=== PATIENT | male | born 1965 | race Caucasian/White ===

== ENCOUNTER 2017-05-07 21:58 | Emergency (ER) | payer SELFPAY, BC ==
[2017-05-07 23:29] LABS: HEMATOCRIT 47.5 % (42.0-52.0); HEMOGLOBIN 16.8 g/dl (14.0-18.0); MEAN CORPUSCULAR HGB CONC 35.4 g/dl (32.0-36.5); PLATELET COUNT, AUTOMATED 161 10^3/uL (150-450); RED CELL DISTRIBUTION WIDTH 11.6 % (11.5-14.5)
[2017-05-08 00:02] LABS: ALBUMIN 4.2 GM/DL (3.2-5.2); ALBUMIN/GLOBULIN RATIO 1.14 (1.00-1.93); ALKALINE PHOSPHATASE 108 U/L (45-117); ALT/SGPT 47 U/L (12-78); ANION GAP 15 MEQ/L (8-16); AST/SGOT 56 U/L (7-37); BILIRUBIN,DIRECT 0.2 MG/DL (0.0-0.2); BILIRUBIN,TOTAL 0.5 MG/DL (0.2-1.0); BLOOD UREA NITROGEN 13 MG/DL (7-18); CALCIUM LEVEL 8.6 MG/DL (8.5-10.1); CARBON DIOXIDE LEVEL 19 MEQ/L (21-32); CHLORIDE LEVEL 103 MEQ/L (98-107); CREATININE FOR GFR 0.97 MG/DL (0.70-1.30); ETHYL ALCOHOL (ETHANOL) 0.284 % (0.000-0.010); GLOMERULAR FILTRATION RATE > 60.0 (>56); GLUCOSE, FASTING 333 MG/DL (70-100); POTASSIUM SERUM 4.4 MEQ/L (3.5-5.1); SALICYLATE LEVEL < 1.7 MG/DL (5.0-30.0); SODIUM LEVEL 137 MEQ/L (136-145); TOTAL PROTEIN 7.9 GM/DL (6.4-8.2)
[2017-05-08 00:13] LABS: ACETAMINOPHEN LEVEL < 2.0 UG/ML (10.0-30.0)
[2017-05-08 01:05] LABS: AMPHETAMINES LEVEL URINE NEGATIVE (NEGATIVE); BARBITURATES URINE NEGATIVE (NEGATIVE); BENZODIAZEPINES URINE NEGATIVE (NEGATIVE); CANNABINOIDS URINE NEGATIVE (NEGATIVE); COCAINE METABOLITE URINE NEGATIVE (NEGATIVE); METHADONE URINE NEGATIVE (NEGATIVE); OPIATES URINE NEGATIVE (NEGATIVE); PHENCYCLIDINE URINE NEGATIVE (NEGATIVE)
[2017-05-08 10:12] LABS: ESTIMATED AVERAGE GLUCOSE 229 MG/DL (60-110); HEMOGLOBIN A1c 9.6 %
== END 2017-05-08 09:28 | disposition home or self-care (01) ==
LOC: M ED 21:58
DX: F10.120 Alcohol abuse with intoxication, uncomplicated (principal); Y90.1 Blood alcohol level of 20-39 mg/100 ml; I10 Essential (primary) hypertension; R73.9 Hyperglycemia, unspecified
CPT/HCPCS: G0480

== ENCOUNTER → 2017-06-09 | Outpatient (REF) | payer BC ==
[2017-06-09 13:15] LABS: BASO # 0.1 10^3/uL (0.0-0.2); BASO % 0.9 % (0.0-1.0); EOS # 0.1 10^3/uL (0.0-0.50); EOS % 1.7 % (0.0-3.0); HEMATOCRIT 45.3 % (42.0-52.0); HEMOGLOBIN 16.3 g/dl (14.0-18.0); IMMATURE GRANULOCYTE % 0.2 % (0-3.0); LYMPH # 1.7 10^3/uL (1.5-4.5); LYMPH % 29.8 % (24.0-44.0); MEAN CORPUSCULAR HEMOGLOBIN 35.7 pg (27.0-33.0); MEAN CORPUSCULAR VOLUME 99.3 fl (80.0-96.0); MONO # 0.6 10^3/uL (0.0-0.8); MONO % 9.5 % (0.0-5.0); NEUTROPHILS # 3.4 10^3/uL (1.8-7.7); NEUTROPHILS % 57.9 % (36.0-66.0); PLATELET COUNT, AUTOMATED 176 10^3/uL (150-450); RED BLOOD COUNT 4.56 10^6/uL (4.30-6.10); RED CELL DISTRIBUTION WIDTH 11.9 % (11.5-14.5); WHITE BLOOD COUNT 5.8 10^3/uL (4.0-10.0)
[2017-06-09 14:02] LABS: ALBUMIN 4.3 GM/DL (3.2-5.2); ALBUMIN/GLOBULIN RATIO 1.19 (1.00-1.93); ALKALINE PHOSPHATASE 117 U/L (45-117); ALT/SGPT 33 U/L (12-78); ANION GAP 9 MEQ/L (8-16); AST/SGOT 29 U/L (7-37); BILIRUBIN,TOTAL 1.8 MG/DL (0.2-1.0); BLOOD UREA NITROGEN 16 MG/DL (7-18); CALCIUM LEVEL 9.3 MG/DL (8.5-10.1); CARBON DIOXIDE LEVEL 28 MEQ/L (21-32); CHLORIDE LEVEL 100 MEQ/L (98-107); CHOLESTEROL LEVEL 201 MG/DL (<200); CHOLESTEROL RISK RATIO 3.589 (<5); CREATININE FOR GFR 0.87 MG/DL (0.70-1.30); GLOMERULAR FILTRATION RATE > 60.0 (>56); GLUCOSE, FASTING 242 MG/DL (70-100); HDL CHOLESTEROL 56 MG/DL (>40); NON-HDL-C 145 MG/DL; POTASSIUM SERUM 4.3 MEQ/L (3.5-5.1); SODIUM LEVEL 137 MEQ/L (136-145); TOTAL PROTEIN 7.9 GM/DL (6.4-8.2); TRIGLYCERIDES LEVEL 65 MG/DL (<150)
[2017-06-09 15:50] LABS: ESTIMATED AVERAGE GLUCOSE 237 MG/DL (60-110); HEMOGLOBIN A1c 9.9 %
== END ==
LOC: M LABDRAW1 11:48
DX: E78.5 Hyperlipidemia, unspecified (principal); E73.9 Lactose intolerance, unspecified; I10 Essential (primary) hypertension
CPT/HCPCS: 80053

== ENCOUNTER → 2017-09-10 | Outpatient (REF) | payer BC ==
[2017-09-10 11:38] LABS: ESTIMATED AVERAGE GLUCOSE 126 MG/DL (60-110)
[2017-09-10 11:45] LABS: ANION GAP 8 MEQ/L (8-16); BLOOD UREA NITROGEN 14 MG/DL (7-18); CARBON DIOXIDE LEVEL 28 MEQ/L (21-32); CHLORIDE LEVEL 102 MEQ/L (98-107); CREATININE FOR GFR 0.71 MG/DL (0.70-1.30); GLOMERULAR FILTRATION RATE > 60.0 (>56); GLUCOSE, FASTING 97 MG/DL (70-100); POTASSIUM SERUM 4.2 MEQ/L (3.5-5.1); SODIUM LEVEL 138 MEQ/L (136-145)
[2017-09-10 12:26] LABS: CREATININE, URINE 90.1 MG/DL; MALB URINE SIEMENS 16.7 MG/L; MAU/CREAT RATIO 18.5 MCG/MG (0.0-30.0)
== END ==
LOC: M LABDRAW1 11:03
DX: E11.9 Type 2 diabetes mellitus without complications (principal)
CPT/HCPCS: 83036

== ENCOUNTER → 2018-03-03 | Outpatient (REF) | payer BC ==
[2018-03-03 14:27] LABS: ANION GAP 9 MEQ/L (8-16); BLOOD UREA NITROGEN 16 MG/DL (7-18); CALCIUM LEVEL 8.8 MG/DL (8.5-10.1); CARBON DIOXIDE LEVEL 27 MEQ/L (21-32); CHLORIDE LEVEL 99 MEQ/L (98-107); CHOLESTEROL LEVEL 197 MG/DL (<200); CHOLESTEROL RISK RATIO 3.788 (<5); CREATININE FOR GFR 0.83 MG/DL (0.70-1.30); GLOMERULAR FILTRATION RATE > 60.0 (>56); GLUCOSE, FASTING 96 MG/DL (70-100); HDL CHOLESTEROL 52 MG/DL (>40); LDL CHOLESTEROL 125 MG/DL (<100); NON-HDL-C 145 MG/DL; POTASSIUM SERUM 4.1 MEQ/L (3.5-5.1); SODIUM LEVEL 135 MEQ/L (136-145); TRIGLYCERIDES LEVEL 98 MG/DL (<150)
[2018-03-03 15:28] LABS: ESTIMATED AVERAGE GLUCOSE 111 MG/DL (60-110); HEMOGLOBIN A1c 5.5 %
== END ==
LOC: M LABDRAW1 12:04
DX: E78.5 Hyperlipidemia, unspecified (principal); E11.69 Type 2 diabetes mellitus with other specified complication
CPT/HCPCS: 83036

== ENCOUNTER → 2019-05-18 | Outpatient (REF) | payer BC ==
[2019-05-18 12:42] LABS: ALBUMIN 4.3 GM/DL (3.2-5.2); ALT/SGPT 28 U/L (12-78); BILIRUBIN,TOTAL 0.9 MG/DL (0.2-1.0); BLOOD UREA NITROGEN 10 MG/DL (7-18); CALCIUM LEVEL 8.9 MG/DL (8.5-10.1); CARBON DIOXIDE LEVEL 27 MEQ/L (21-32); CHLORIDE LEVEL 105 MEQ/L (98-107); CHOLESTEROL LEVEL 175 MG/DL (<200); CREATININE FOR GFR 0.79 MG/DL (0.70-1.30); GLOMERULAR FILTRATION RATE > 60.0 (>56); GLUCOSE, FASTING 109 MG/DL (70-100); HDL CHOLESTEROL 72 MG/DL (>40); LDL CHOLESTEROL 92 MG/DL (<100); NON-HDL-C 103 MG/DL; POTASSIUM SERUM 4.3 MEQ/L (3.5-5.1); SODIUM LEVEL 140 MEQ/L (136-145); TOTAL PROTEIN 7.5 GM/DL (6.4-8.2); TRIGLYCERIDES LEVEL 55 MG/DL (<150)
== END ==
LOC: M LABDRAW1 07:32
PROVIDERS: ATTEND Physician Assistant
DX: E11.9 Type 2 diabetes mellitus without complications (principal); E78.5 Hyperlipidemia, unspecified

== ENCOUNTER 2019-12-01 21:28 | Emergency (ER) | payer BC ==
[2019-12-01 22:38] VITALS: BP 129/81
[2019-12-01 23:04] LABS: HEMATOCRIT 40.9 % (42.0-52.0); MEAN CORPUSCULAR HEMOGLOBIN 34.1 pg (27.0-33.0); MEAN CORPUSCULAR HGB CONC 34.2 g/dl (32.0-36.5); MEAN CORPUSCULAR VOLUME 99.5 fl (80.0-96.0); PLATELET COUNT, AUTOMATED 150 10^3/uL (150-450); RED BLOOD COUNT 4.11 10^6/uL (4.30-6.10); WHITE BLOOD COUNT 7.1 10^3/uL (4.0-10.0)
[2019-12-01 23:39] LABS: AMPHETAMINES LEVEL URINE NEGATIVE (NEGATIVE); BARBITURATES URINE NEGATIVE (NEGATIVE); BENZODIAZEPINES URINE NEGATIVE (NEGATIVE); CANNABINOIDS URINE NEGATIVE (NEGATIVE); COCAINE METABOLITE URINE NEGATIVE (NEGATIVE); METHADONE URINE NEGATIVE (NEGATIVE); OPIATES URINE NEGATIVE (NEGATIVE); PHENCYCLIDINE URINE NEGATIVE (NEGATIVE)
[2019-12-01 23:51] LABS: ACETAMINOPHEN LEVEL < 2.0 UG/ML (10.0-30.0); ALBUMIN 4.1 GM/DL (3.2-5.2); ALT/SGPT 38 U/L (12-78); BILIRUBIN,DIRECT 0.3 MG/DL (0.0-0.2); BILIRUBIN,TOTAL 0.9 MG/DL (0.2-1.0); BLOOD UREA NITROGEN 10 MG/DL (7-18); CALCIUM LEVEL 8.7 MG/DL (8.5-10.1); CARBON DIOXIDE LEVEL 25 MEQ/L (21-32); CHLORIDE LEVEL 107 MEQ/L (98-107); CREATININE FOR GFR 0.84 MG/DL (0.70-1.30); ETHYL ALCOHOL (ETHANOL) 0.324 % (0.000-0.010); GLOMERULAR FILTRATION RATE > 60.0 (>56); GLUCOSE, FASTING 108 MG/DL (70-100); POTASSIUM SERUM 3.6 MEQ/L (3.5-5.1); SALICYLATE LEVEL < 1.7 MG/DL (5.0-30.0); SODIUM LEVEL 141 MEQ/L (136-145); TOTAL PROTEIN 7.4 GM/DL (6.4-8.2)
[2020-02-08] MEDS ORDERED: AMLO10CA22 PO (09:32)
[2020-02-08] MEDS ORDERED: METF-877 PO (09:32)
== END 2019-12-02 06:13 | disposition home or self-care (01) ==
LOC: M ED 21:28
DX: F10.229 Alcohol dependence with intoxication, unspecified (principal); Y90.1 Blood alcohol level of 20-39 mg/100 ml; F41.8 Other specified anxiety disorders
CPT/HCPCS: 36415; 80048; 80076; 80307; 84443; 85027; 99284; G0480

== ENCOUNTER → 2019-12-20 | Outpatient (CLI) | payer BC ==
[~2019-12-20] MED LIST: AMLO10CA22 PO; METF-877 PO
[2019-12-20 11:47] LABS: ALBUMIN 4.5 GM/DL (3.2-5.2); ALT/SGPT 278 U/L (12-78); BILIRUBIN,TOTAL 1.8 MG/DL (0.2-1.0); BLOOD UREA NITROGEN 11 MG/DL (7-18); CALCIUM LEVEL 9.1 MG/DL (8.5-10.1); CARBON DIOXIDE LEVEL 29 MEQ/L (21-32); CHLORIDE LEVEL 101 MEQ/L (98-107); GLOMERULAR FILTRATION RATE > 60.0 (>56); GLUCOSE, FASTING 107 MG/DL (70-100); POTASSIUM SERUM 4.4 MEQ/L (3.5-5.1); SODIUM LEVEL 136 MEQ/L (136-145); TOTAL PROTEIN 7.9 GM/DL (6.4-8.2)
[2019-12-20 12:09] LABS: HEMOGLOBIN A1c 5.5 %
== END ==
LOC: M WUC 08:02
PROVIDERS: ATTEND Physician Assistant
DX: E11.9 Type 2 diabetes mellitus without complications (principal); I10 Essential (primary) hypertension

== ENCOUNTER → 2020-01-04 | Outpatient (CLI) | payer BC ==
[2020-01-04 11:06] LABS: BASO # 0.1 10^3/uL (0.0-0.2); EOS % 0.4 % (0.0-3.0); HEMATOCRIT 40.6 % (42.0-52.0); HEMOGLOBIN 13.8 g/dl (13.5-17.5); LYMPH # 1.5 10^3/uL (1.5-5.0); LYMPH % 20.9 % (24.0-44.0); MEAN CORPUSCULAR HEMOGLOBIN 34.3 pg (27.0-33.0); MONO # 0.7 10^3/uL (0.0-0.8); MONO % 10.5 % (0.0-5.0); NEUTROPHILS # 4.7 10^3/uL (1.5-8.5); NEUTROPHILS % 66.8 % (36.0-66.0); PLATELET COUNT, AUTOMATED 152 10^3/uL (150-450); RED BLOOD COUNT 4.02 10^6/uL (4.30-6.10)
[2020-01-04 11:35] LABS: ALBUMIN 4.4 GM/DL (3.2-5.2); ALT/SGPT 105 U/L (12-78); BILIRUBIN,TOTAL 2.2 MG/DL (0.2-1.0); BLOOD UREA NITROGEN 14 MG/DL (7-18); CALCIUM LEVEL 9.2 MG/DL (8.5-10.1); CARBON DIOXIDE LEVEL 27 MEQ/L (21-32); CHLORIDE LEVEL 103 MEQ/L (98-107); CREATININE FOR GFR 0.83 MG/DL (0.70-1.30); FERRITIN 1358 NG/ML (26-388); FREE T4 1.13 NG/DL (0.76-1.46); GLOMERULAR FILTRATION RATE > 60.0 (>56); GLUCOSE, FASTING 104 MG/DL (70-100); IRON (FE) 139 UG/DL (65-175); POTASSIUM SERUM 3.9 MEQ/L (3.5-5.1); SODIUM LEVEL 137 MEQ/L (136-145); TOTAL IRON BINDING CAPACITY 331 UG/DL (250-450); TOTAL PROTEIN 7.4 GM/DL (6.4-8.2)
[2020-01-04 11:37] LABS: HEPATITIS B SURFACE ANTIBODY NEGATIVE (POSITIVE)
[2020-01-04 11:48] LABS: HEPATITIS B SURFACE ANTIGEN NEGATIVE (NEGATIVE)
[2020-01-04 12:16] LABS: HEPATITIS C VIRUS ABY INDEX 0.1 INDEX (<0.8)
[2020-01-05 14:10] LABS: ANTINUCLEAR ANTIBODIES DIRECT Negative (Negative); CERULOPLASMIN 22.5 mg/dL (16.0-31.0); HBVCOREDIFF1 Negative (Negative); HBVCOREDIFF2 Negative (Negative); TISSUE TRANSGLUTAMINASE IgA <2 U/mL (0-3)
== END ==
LOC: M WUC 08:04
PROVIDERS: ATTEND Nurse Practitioner Family
DX: R94.5 Abnormal results of liver function studies (principal)

== ENCOUNTER 2021-01-21 14:12 | Emergency (ER) | payer BC ==
[~2021-01-21] VITALS: Ht 162.6 cm; Wt 63.6 kg
[2021-01-21 14:14] VITALS: BP 123/79
--- OUTSIDE RECORDS SUMMARY | 2021-01-21 14:23 | CCD ---
Author Author [facility] Organization [facility] Address Unknown Phone Unavailable Care Team Providers Care Interventional Physician Name Role Phone NO, PCP Unavailable Unavailable Hospital [facility], [facility] Unavailable Unavailable Blade, Shabbir Holly MD Unavailable Unavailable Blade, Shabbir Holly MD Unavailable Unavailable Blade, Shabbir Holly MD Unavailable Unavailable Blade, Shabbir Holly MD Unavailable Unavailable Blade, Shabbir Holly MD Unavailable Unavailable Blade, Shabbir Holly MD Unavailable Unavailable Blade, Shabbir Holly MD Unavailable Unavailable Blade, Sahbbir Holly MD Unavailable Unavailable Blade, Shabbir Holly MD Unavailable Unavailable Blade, Shabbir Holly MD Unavailable Unavailable Blade, Shabbir Holly MD Unavailable Unavailable Blade, Shabbir Holly MD Unavailable Unavailable Blade, Shabbir Holly MD Unavailable Unavailable Blade, Shabbir Holly MD Unavailable Unavailable Blade, Shabbir Holly MD Unavailable Unavailable Blade, Shabbir Holly MD Unavailable Unavailable Blade, Shabbir Holly MD Unavailable Unavailable Blade, Shabbir Holly MD Unavailable Unavailable Blade, Shabbir Holly MD Unavailable Unavailable Blade, Shabbir Holly MD Unavailable Unavailable Blade, Shabbir Holly MD Unavailable Unavailable Blade, Shabbir Holly MD Unavailable Unavailable Blade, Shabbir Holly MD Unavailable Unavailable Blade, Shabbir Holly MD Unavailable Unavailable Blade, Shabbir Holly MD Unavailable Unavailable Blade, Shabbir Holly MD Unavailable Unavailable Blade, Shabbir Holly MD Unavailable Unavailable Blade, Shabbir Holly MD Unavailable Unavailable Blade, Shabbir Holly MD Unavailable Unavailable Blade, Shabbir Holly MD Unavailable Unavailable Blade, Shabbir Holly MD Unavailable Unavailable Blade, Shabbir Holly MD Unavailable Unavailable Blade, Shabbir Holly MD Unavailable Unavailable Blade, Shabbir Holly MD Unavailable Unavailable Blade, Shabbir Holly MD Unavailable Unavailable Blade, Shabbir Holly MD Unavailable Unavailable Blade, Shabbir Holly MD Unavailable Unavailable Blade, Shabbir Holly MD Unavailable Unavailable Blade, A Elayne THOMPSON Unavailable Unavailable Blade, A Elayne THOMPSON Unavailable Unavailable Blade, A Elayne THOMPSON Unavailable Unavailable Blade, A Elayne THOMPSON Unavailable Unavailable Blade, A Elayne THOMPSON Unavailable Unavailable Blade, A Elayne THOMPSON Unavailable Unavailable Blade, A Elayne THOMPSON Unavailable Unavailable Blade, A Elayne THOMPSON Unavailable Unavailable Blade, A Elayne THOMPSON Unavailable Unavailable Blade, A Elayne THOMPSON Unavailable Unavailable Blade, A Elayne THOMPSON Unavailable Unavailable Blade, A Elayne THOMPSON Unavailable Unavailable Blade, A Elayne THOMPSON Unavailable Unavailable Blade, A Elayne THOMPSON Unavailable Unavailable Blade, A Elayne THOMPSON Unavailable Unavailable Blade, A Elayne THOMPSON Unavailable Unavailable Blade, A Elayne THOMPSON Unavailable Unavailable Blade, A Elayne THOMPSON Unavailable Unavailable Blade, A Elayne THOMPSON Unavailable Unavailable Blade, A Elayne THOMPSON Unavailable Unavailable Blade, A Elayne THOMPSON Unavailable Unavailable Blade, A Elayne THOMPSON Unavailable Unavailable Blade, A Elayne THOMPSON Unavailable Unavailable Blade, A Elayne THOMPSON Unavailable Unavailable Blade, A Elayne THOMPSON Unavailable Unavailable Blade, A Elayne THOMPSON Unavailable Unavailable Blade, A Elayne THOMPSON Unavailable Unavailable Blade, A Elayne THOMPSON Unavailable Unavailable Blade, A Elayne THOMPSON Unavailable Unavailable Blade, A Elayne THOMPSON Unavailable Unavailable Blade, A Elayne THOMPSON Unavailable Unavailable Blade, A Elayne THOMPSON Unavailable Unavailable Blade, A Elayne THOMPSON Unavailable Unavailable Blade, A Elayne THOMPSON Unavailable Unavailable Blade, A Elayne THOMPSON Unavailable Unavailable Blade, A Elayne THOMPSON Unavailable Unavailable Blade, A Elayne THOMPSON Unavailable Unavailable Blade, A Elayne THOMPSON Unavailable Unavailable Blade, A Elayne THOMPSON Unavailable Unavailable Blade, A Elayne THOMPSON Unavailable Unavailable Blade, A Elayne THOMPSON Unavailable Unavailable Blade, A Elayne THOMPSON Unavailable Unavailable Blade, A Elayne THOMPSON Unavailable Unavailable Blade, Shabbir Holly MD Unavailable Unavailable Pleskach, Ramandeep TECHNOLOGY INTEGRATION SPECIALIST Unavailable Unavailable Pleskach, Ramandeep TECHNOLOGY INTEGRATION SPECIALIST Unavailable Unavailable Pleskach, Ramandeep TECHNOLOGY INTEGRATION SPECIALIST Unavailable Unavailable Pleskach, Ramandeep TECHNOLOGY INTEGRATION SPECIALIST Unavailable Unavailable Pleskach, Ramandeep TECHNOLOGY INTEGRATION SPECIALIST Unavailable Unavailable Pleskach, Ramandeep TECHNOLOGY INTEGRATION SPECIALIST Unavailable Unavailable Pleskach, Ramandeep TECHNOLOGY INTEGRATION SPECIALIST Unavailable Unavailable Pleskach, Ramandeep TECHNOLOGY INTEGRATION SPECIALIST Unavailable Unavailable Pleskach, Ramandeep TECHNOLOGY INTEGRATION SPECIALIST Unavailable Unavailable Pleskach, Ramandeep TECHNOLOGY INTEGRATION SPECIALIST Unavailable Unavailable Pleskach, Ramandeep TECHNOLOGY INTEGRATION SPECIALIST Unavailable Unavailable Pleskach, Ramandeep TECHNOLOGY INTEGRATION SPECIALIST Unavailable Unavailable Pleskach, Ramandeep TECHNOLOGY INTEGRATION SPECIALIST Unavailable Unavailable Pleskach, Ramandeep TECHNOLOGY INTEGRATION SPECIALIST Unavailable Unavailable Pleskach, Ramandeep TECHNOLOGY INTEGRATION SPECIALIST Unavailable Unavailable Pleskach, Ramandeep TECHNOLOGY INTEGRATION SPECIALIST Unavailable Unavailable Pleskach, Ramandeep TECHNOLOGY INTEGRATION SPECIALIST Unavailable Unavailable Pleskach, Ramandeep TECHNOLOGY INTEGRATION SPECIALIST Unavailable Unavailable Pleskach, Ramandeep TECHNOLOGY INTEGRATION SPECIALIST Unavailable Unavailable Pleskach, Ramandeep TECHNOLOGY INTEGRATION SPECIALIST Unavailable Unavailable Pleskach, Ramandeep TECHNOLOGY INTEGRATION SPECIALIST Unavailable Unavailable Pleskach, Ramandeep TECHNOLOGY INTEGRATION SPECIALIST Unavailable Unavailable Pleskach, Ramandeep TECHNOLOGY INTEGRATION SPECIALIST Unavailable Unavailable Pleskach, Ramandeep TECHNOLOGY INTEGRATION SPECIALIST Unavailable Unavailable Pleskach, Ramandeep TECHNOLOGY INTEGRATION SPECIALIST Unavailable Unavailable Pleskach, Ramandeep TECHNOLOGY INTEGRATION SPECIALIST Unavailable Unavailable Pleskach, Ramandeep TECHNOLOGY INTEGRATION SPECIALIST Unavailable Unavailable Pleskach, Ramandeep TECHNOLOGY INTEGRATION SPECIALIST Unavailable Unavailable Pleskach, Ramandeep TECHNOLOGY INTEGRATION SPECIALIST Unavailable Unavailable Pleskach, Ramandeep TECHNOLOGY INTEGRATION SPECIALIST Unavailable Unavailable Pleskach, Ramandeep TECHNOLOGY INTEGRATION SPECIALIST Unavailable Unavailable Pleskach, Ramandeep TECHNOLOGY INTEGRATION SPECIALIST Unavailable Unavailable Pleskach, Ramandeep TECHNOLOGY INTEGRATION SPECIALIST Unavailable Unavailable Pleskach, Ramandeep TECHNOLOGY INTEGRATION SPECIALIST Unavailable Unavailable Pleskach, Ramandeep TECHNOLOGY INTEGRATION SPECIALIST Unavailable Unavailable Pleskach, Ramandeep TECHNOLOGY INTEGRATION SPECIALIST Unavailable Unavailable Pleskach, Ramandeep TECHNOLOGY INTEGRATION SPECIALIST Unavailable Unavailable Pleskach, Ramandeep TECHNOLOGY INTEGRATION SPECIALIST Unavailable Unavailable Pleskach, Ramandeep TECHNOLOGY INTEGRATION SPECIALIST Unavailable Unavailable Pleskach, Ramandeep TECHNOLOGY INTEGRATION SPECIALIST Unavailable Unavailable Pleskach, Ramandeep TECHNOLOGY INTEGRATION SPECIALIST Unavailable Unavailable Pleskach, Ramandeep TECHNOLOGY INTEGRATION SPECIALIST Unavailable Unavailable SILVA, L MARLENY MD Unavailable Unavailable SILVA, L MARLENY MD Unavailable Unavailable SILVA, L MARLENY MD Unavailable Unavailable SILVA, L MARLENY MD Unavailable Unavailable SILVA, L MARLENY MD Unavailable Unavailable SILVA, L MARLENY MD Unavailable Unavailable SILVA, L MARLENY MD Unavailable Unavailable SILVA, L MARLENY MD Unavailable Unavailable SILVA, L MARLENY MD Unavailable Unavailable SILVA, L MARLENY MD Unavailable Unavailable SILVA, L MARLENY MD Unavailable Unavailable SILVA, L MARLENY MD Unavailable Unavailable SILVA, L MARLENY MD Unavailable Unavailable SILVA, L MARLENY MD Unavailable Unavailable SILVA, L MARLENY MD Unavailable Unavailable SILVA, L MARLENY MD Unavailable Unavailable SILVA, L MARLENY MD Unavailable Unavailable SILVA, L MARLENY MD Unavailable Unavailable SILVA, L MARLENY MD Unavailable Unavailable SILVA, L MARLENY MD Unavailable Unavailable Re-disclosure Warning The records that you are about to access may contain information from federally-assisted alcohol or drug abuse programs. If such information is present, then the following federally mandated warning applies: This information has been disclosed to you from records protected by federal confidentiality rules (42 CFR part 2). The federal rules prohibit you from making any further disclosure of this information unless further disclosure is expressly permitted by the written consent of the person to whom it pertains or as otherwise permitted by 42 CFR part 2. A general authorization for the release of medical or other information is NOT sufficient for this purpose. The Federal rules restrict any use of the information to criminally investigate or prosecute any alcohol or drug abuse patient.The records that you are about to access may contain highly sensitive health information, the redisclosure of which is protected by Article 27-F of the [facility] Public Health law. If you continue you may have access to information: Regarding HIV / AIDS; Provided by facilities licensed or operated by the [facility] Office of Mental Health; or Provided by the [facility] Office for People With Developmental Disabilities. If such information is present, then the following [facility] mandated warning applies: This information has been disclosed to you from confidential records which are protected by state law. State law prohibits you from making any further disclosure of this information without the specific written consent of the person to whom it pertains, or as otherwise permitted by law. Any unauthorized further disclosure in violation of state law may result in a fine or detention sentence or both. A general authorization for the release of medical or other information is NOT sufficient authorization for further disc losure. Family History Family Member Name Family Member Gender Family Member Status Date o f Status Description Data Source(s) Unknown Unknown Problem [facility] Encounters Encounter Providers Location Date Indications Data Source(s ) Outpatient Attender: [facility] 12/26/2020 11:5 0:00 PM EDT [facility] Emergency Attender: MARLENY ASCENCIO MDConsultant: PCP NO 12/26/2020 06:32:00 PM EDT - 12/27/2020 10:49:00 AM EDT [facility]. Outpatient Attender: Elayne Torres MD Main Office 07/16/2020 01:45:0 0 PM EDT [facility] Outpatient Attender: Ramandeep Milner [facility] Main Office 04/10/2020 0 1:45:00 PM EST [facility] Outpatient Attender: Ramandeep Annia [facility] Main Office 01/09/2020 0 1:45:00 PM EDT [facility] Outpatient Attender: Ramandeep Annia [facility] Main Office 12/26/2019 0 2:00:00 PM EDT [facility] ([facility] Immunizations Vaccine Date Status Description Data Source(s) COVID-19 VACCINE Moderna 07/29/2020 12:00:00 AM EDT completed [facility] Vaccine Series Complete: YESThis Data wa s Submitted to [facility] Via [employer]. Moderna Sars-(Covid-19) vaccine, mRNA, LNP-S, PF, 100 mcg/ 0.5 mL 06/28/2020 12:00:00 AM EDT completed [facility] ([facility] New in 2012. IIV4 12/26/2019 02:07:00 PM EDT completed [facility] pneumococcal polysaccharide PPV23 12/26/2019 02:07:00 PM EDT comple ortiz [facility] ([facility] Medications Medication Brand Name Start Date Product Form Dose Route Admi nistrative Instructions Pharmacy Instructions Status Indications Reaction Description Data Source(s) Amlodipine 10 MG / Benazepril hydrochloride 40 MG Oral Capsule 10-40 mg AMLODIPINE BESYLATE/BENAZEPRIL 04/11/2020 12:00:00 AM EST capsule 30 TAKE ONE CAPSULE BY MOUTH EVERY MORNING FOR BLOOD PRESSURE TAKE ONE CAPSULE BY MOUTH EVERY MORNING FOR BLOOD PRESSURE SOLD: 10/31/2020 [facility] 10-40 mg 04/11/2020 12:00:00 AM EST capsule 30 TAKE ONE CAPSULE BY MOUTH EVERY MORNING FOR BLOOD PRESSURE TAKE ONE CAPSULE BY MOUTH EVERY MORNING FOR BLOOD PRESSURE SOLD: 04/18/2020 [facility] 10-40 mg 04/11/2020 12:00:00 AM EST capsule 30 TAKE ONE CAPSULE BY MOUTH EVERY MORNING FOR BLOOD PRESSURE TAKE ONE CAPSULE BY MOUTH EVERY MORNING FOR BLOOD PRESSURE SOLD: 07/16/2020 [facility] 10-40 mg 04/11/2020 12:00:00 AM EST capsule 30 TAKE ONE CAPSULE BY MOUTH EVERY MORNING FOR BLOOD PRESSURE TAKE ONE CAPSULE BY MOUTH EVERY MORNING FOR BLOOD PRESSURE SOLD: 05/31/2020 [facility] 1,000 mg 04/11/2020 12:00:00 AM EST tablet 60 TAKE ONE TABLET BY MOUTH EVERY DAY WITH LARGEST MEAL FOR DIABETES TAKE ONE TABLET BY MOUTH EVERY DAY WITH LARGEST MEAL FOR DIABETES SOLD: 10/31/2020 [facility] Metformin hydrochloride 1000 MG Oral Tablet 1,000 mg METFORM IN HCL 04/11/2020 12:00:00 AM EST tablet 60 TAKE ONE TABLET BY MOUTH EVERY DAY WITH LARGEST MEAL FOR DIABETES TAKE ONE TABLET BY MOUTH EVERY DAY WITH LARGEST MEAL F OR DIABETES SOLD: 04/18/2020 [facility] 10-40 mg 12/14/2019 12:00:00 AM EDT capsule 30 TAKE ONE CAPSULE BY MOUTH EVERY MORNING FOR BLOOD PRESSURE TAKE ONE CAPSULE BY MOUTH EVERY MORNING FOR BLOOD PRESSURE SOLD: 12/15/2019 [facility] Insurance Providers Payer name Policy type / Coverage type Policy ID Covered constitution party ID Covered constitution party's relationship to camacho Policy Camacho Plan Information BCBS [facility] [id number] SP [id number] BS Of [facility] ([facility] VYA2 [id number] Self [id number] [facility] [id number] SP [id number] BS Of [facility] ([facility]) VYA2 [id number] Self [id number] SELF PAY ONLY [id number] SP [id number] BS Of [facility] ([facility]) VYA2 [id number] Self [id number] BS Of [facility] ([facility]) VYA2 [id number] Self [id number] [place] 302/307 [id number] SP [id number] [place] 302/307 [id number] SP [id number] [employer] BCBS B [id number] S [id number] [id number] [place]BS [place] 302/307 [id number] SP [id number] Problems, Conditions, and Diagnoses Code Display Name Description Problem Type Effective Dates Data Source(s) [id number] CONTACT WITH AND SUSPECTED EXPOSURE TO C OVID-19 CONTACT WITH AND SUSPECTED EXPOSURE TO COVID-19 Diagnosis 12/26/2020 06:32:[address] [facility] Y908 Blood alcohol level of 240 mg/100 ml or more Blood alcohol level of 240 mg/100 ml or more Diagnosis 12/26/2020 06:32:[address] [facility] J189 Pneumonia, unspecified organism Pneumonia, unspecified organism Diagnosis 12/26/2020 06:32:[address] [facility] I10 Essential (primary) hypertension Essential (primary) h ypertension Diagnosis 12/26/2020 06:32:[address] [facility] E119 Type 2 diabetes mellitus without complic ations Type 2 diabetes mellitus without complications Diagnosis 12/26/2020 06:32:00 PM EDT [facility] [id number] Alcohol use, unspecified with intoxicati on, uncomplicated Alcohol use, unspecified with intoxication, uncomplicated Diagnosis 06:32:[address] [facility] Surgeries/Procedures Procedure Description Date Indications Data Source(s) Diabetic Foot Exam 12/26/2019 12:00:00 AM EDT [facility] ([facility] done by Day Results ID Date Data Source [id number] 12/26/2020 06:32:[address] [facility] [address] [facility] Emergency Department [address] [place] [address] Phone #: ext- [phone] 12/26/2020 18:31 Patient: LAURA NATION Sex: M : 1965 Age: 55yWEIGHT:63.5 kg (S) HEIGHT:67 inches (S) BMI:21.9ALLERGIES: NoneCHIEF COMPLAINT: intoxicatedDIAGNOSIS: Alcohol intoxication, PneumoniaLAB ORDERSOrder Description Priority Entered Acknowledged [facility] 19:05 12/26/2020 19:33 Marleny Dior MD; Taiwo NICKCMP STAT 19:05 12/26/2020 19:33 Marleny Dior MD; Taiwo NICKTroponin-T STAT 19:05 12/26/2020 19:33 Marleny Dior MD; Taiwo NICKTSH STAT 19:05 12/26/2020 19:33 Marleny Dior MD; Taiwo NICKMagnesium STAT 19:05 12/26/2020 19:34 Marleny Dior MD; Taiwo NICKLipase STAT 19:05 12/26/2020 19:34 Marleny Dior MD; Taiwo Jones Drug Screen STAT 19:05 12/26/2020 02:40 12/27/2020 Marleny Ascencio MD; Herbert Maravilla RNUA Reflex to UA 19:05 12/26/2020 02:40 12/27/2020ulture Marleny Ascencio MD; Herbert Maravilla RNETOH STAT 19:05 12/26/2020 19:34 Marleny Dior MD; Taiwo NICKCOVID-19 CAH (Not STAT 22:04 12/26/2020 Ack'd: 22:36 Soumya 00:54 12/27/2020ymptomatic as Marleny Ascencio MD; Grant Resendizfined by [facility]) R.N.(12/26/20) (First Test)(Hospitalized) (Not) (NotResident inCongregate CareSetting) (NotEmployed inHealthcare Setting)Blood Culture STAT 22:29 12/26/2020 Ack'd: 23:39 Soumya 00:54 12/27/2020q10m X2 (Marleny Mcwilliams MD; Grant Maravilla [address] [facility] Emergency Department [address] [place] [address] Phone #: ext- [phone] 12/26/2020 18:31 Patient: LAURA NATION Sex: M : 1965 Age: 55y22:29 12/26/2020) R.N.Blood Culture STAT 22:29 12/26/2020 Ack'd: 23:39 Soumya 00:54 12/27/2020q10m X2 (Marleny Mcwilliams MD; Grant Maravilla22:39 12/26/2020) R.N.DIAGNOSTIC STUDY ORDERSOrder Description Priority Entered Acknowledged InitialedChest Portable 1 STAT 19:05 12/26/2020 20:02 Marleny De Oliveira MD; Taiwo RN(Oxygen?(No)) Reason for Study: CongestionCT Head W/O Cont STAT 19:15 12/26/2020 19:50 Herbert(Oxygen?(No)) Marleny Ascencio MD; Taiwo RN Reason for Study: Altered Mental StatusMEDICATION/IV/DRIP/FLUID ORDERSOrder Description Priority Entered Acknowledged InitialedAtivan IM 2 mg 18:50 12/26/2020 18:50 Delia Duncan(HIGH ALERT Delia Duncan R.N.; R.N.MEDICATION) Verbal order per; Marleny Ascencio MDHaldol IM 10mg 18:50 12/26/2020 18:50 Delia Duncan(NOW) Delia Duncan RLuke.; R.N. Verbal order per; Marleny Ascencio MDBenadryl IM 50 mg 18:50 12/26/2020 18:50 Delia Duncan(NOW) Delia Duncan R.N.; R.N. Verbal order per; Marleny Ascencio MDIV NS 1000 mL 19:05 12/26/2020 20:02 StevenBolus : Bolus 1000 Marleny Ascencio MD; Taiwo Zhang (X1)Magnesium Sulfate 20:38 12/26/2020 20:48 Steven2 g IVPB X1 dose: 2 Marleny Ascencio MD; Taiwo Crawford (HIGH ALERTMEDICATION, X1)Azithromycin IVPB 22:29 12/26/2020 Ack'd: 22:36 Soumya 00:57 1500 mg X1 Dose: Marleny Ascencio MD; Grant Shepherd.NKamilah Soumyashabbir Maravilla500 mg with R.N.DextroseIntravenous 250 mL(NOW x1)Rocephin 22:29 12/26/2020 Ack'd: 22:36 Soumya 23:40 [address] [facility] Emergency Department [address] [place] [address] Phone #: ext- [phone] 12/26/2020 18:31 Patient: LAURA NATION Sex: M : 1965 Age: 55y(1gm/50mL) IVPB Marleny Ascencio MD; Grant Maravilla R.N.1000 mg withDextrose 50 mlspike bag (D5W)GENERAL ORDERSOrder Description Priority Entered Acknowledged InitialedEKG 19:05 12/26/2020 19:33 Marleny Dior MD; Taiwo NICKDiet: (Regular Diet) 07:14 12/27/2020 07:14 Herbert Maravilla RN; Taiwo NICK Verbal order per; Marleny Ascencio MD[Electronically signed by Delia Duncan R.N. (10:49 12/27/2020)][Electronically signed by Marleny Ascencio MD (23:52 12/28/2020)][Electronically locked by Delia Duncan R.N. (10:49 12/27/2020)] Name Value Range Interpretation Code Description Data Riana rce(s) Supporting Document(s) ID Date Data Source [id number] 12/26/2020 06:32:[address] [facility] [address] [facility] Emergency Department [address] [place] [address] Phone #: ext- [phone] 12/26/2020 18:31 Patient: LAURA NATION Sex: M : 1965 Age: 55yWeight: 63.5 kgHeight/Length: 67 in.BMI: 21.9ALLERGIES: NoneThe patient's Home Medications are listed below:NONE.The source(s) of the original Home Medication information:Not obtained.The following Medications were given to the patient in the Emergency Department:Ativan [IM] IM 2 mg, administered: 18:50 12/26/2020HALDOL [IM] IM 10 mg, administered: 18:50 12/26/2020enadryl [IM] IM 50 mg, administered: 18:50 12/26/2020NS [IV] IV Fluids bolus 1000 mL, then 1000 mL/hr, administered: 20:02 12/26/2020Magnesium Sulfate [IVPB] IVPB bolus 0, then 2 gm 2 gm/hr, administered: 20:48 12/26/2020OCEPHIN (1GM/50ML) [IVPB] IVPB bolus 0, then 1 gm 100 mL/hr, admin istered: 23:39 12/26/2020zithromycin [IVPB] IVPB bolus 0, then 500 mg 250 mL/hr, administered: 00:46 12/27/2020The following Medications were prescribed to the patient:Zithromax Z-Ced 250 mg tablet -- Take 2 tablets on the first day then one tablet daily for 4 days, totalduration is 5 days. Dispense 6 tablet. Refills: 0. Substitution permitted.Pharmacy - [id number] - [id number] ; [place] [address]. FaxNumber: . -- Marleny Ascencio MD Name Value Range Interpretation Code Description Data Riana rce(s) Supporting Document(s) ID Date Data Source [id number] 12/26/2020 06:32:[address] [facility] [address] [facility] Emergency Department [address] [place] [address] Phone #: ext- [phone] 12/26/2020 18:31 Patient: LAURA NATION Sex: M : 1965 Age: 55yWeight: 63.5 kgHeight/Length: 67 inBMI: 21.9ALLERGIES: None Date/Time Medication Administered Medication OrderedGiven ATIVAN [IM] (LORAZEPAM) Ativan IM 2 mg (HIGH ALERT18:50 12/26/2020 Dose: 2 mg IM MEDICATION)Delia Duncan R.N.Given HALDOL [IM] (HALOPERIDOL Haldol IM 10mg (NOW)18:50 12/26/2020 LACTATE)Delia Duncan R.N. Dose: 10 mg IMGiven BENADRYL [IM] (DIPHENHYDRAMINE Benadryl IM 50 mg (NOW)18:50 12/26/2020 HCL)Delia Duncan R.N. Dose: 50 mg IMStart NS [IV] IV NS 1000 mL Bolus : Bolus 288339:[id number] 12/26/2020 Dose: IV Fluids mL (X1)Herbert franks RN Rate: 1000 mL/hr---- Bolus: 1000 mLStop Dispensed: 1000 mL bag22:45 12/26/2020 Site: #1 right forearmSoumya Maravilla R.N.Start MAGNESIUM SULFATE [IVPB] Magnesium Sulfate 2 g IVPB X120:48 12/26/2020 Dose: 2 gm IVPB dose: 2 gm (HIGH Imani Maravilla RN Rate: 2 gm/hr MEDICATION, X1)---- Dispensed: 50 mL bagStop Site: #1 right [id number]:48 12/26/2020Soumya Maravilla R.N.Start AZITHROMYCIN [IVPB] Azithromycin IVPB 500 mg X100:46 12/27/2020 Dose: 500 mg IVPB Dose: 500 mg with DextroseSoumya Maravilla R.N. Rate: 250 mL/hr Intravenous 250 mL (NOW x1)---- Dispensed: 250 mL bagStop Site: #1 right [id number]:49 1RDelia osborn R.N.Start ROCEPHIN (1GM/50ML) [IVPB] Rocephin (1gm/50mL) IVPB [id number] 12/26/2020 (CEFTRIAXONE SODIUM) mg with Dextrose 50 ml spike Sha Maravilla R.N. Dose: 1 gm IVPB (D5W)---- Rate: 100 mL/hrStop Dispensed: 50 mL bag00:10 12/27/2020 Site: #1 right forearmSoumya Maravilla R.N. Name Value Range Interpretation Code Description Data Riana rce(s) Supporting Document(s) ID Date Data Source [id number] 12/26/2020 06:32:[address] [facility] [address] [facility] Emergency Department [address] [place] [address] Phone #: ext- [phone] 12/26/2020 18:31 Patient: LAURA NATION Sex: M : 1965 Age: 55yPneumonia.Alcohol intoxication.INSTRUCTIONSStay with responsible adult family member (or other responsible adult).No alcohol.(Take the antibiotic as instructed for your early pneumonia. please start attending rehab program andalcoholics anonymous meetings to help you get clean of your alcohol dependence. return if worse or anynew symptoms.).Warnings: Further evaluation is necessary.GENERAL WARNINGS: Return or contact your physician immediately if your condition worsens orchanges unexpectedly, if not improving as expected, or if other problems arise.Your Current Medications: .No home medication.Prescription Medications:Zithromax Z-Ced 250 mg tablet -- Take 2 tablets on the first day then one tablet daily for 4 days, totalduration is 5 days. Dispense 6 tablet. Refills: 0. Substitution permitted.Pharmacy - [id number] [address] [place] [address]. FaxNumber: .Follow-up:Follow up with your doctor even if well. Call for an appointment. Reason for referral: evaluation. Summaryof care provided to patient via paper.Understanding of the discharge instructions verbalized by patient. ADDITIONAL INFORMATIONAlcohol IntoxicationAlcohol intoxication is very serious. It occurs when you drink alcohol faster than your liver can break itdown. Severe intoxication is a medical emergency. It is also called alcohol overdose or alcoholpoisoning. It can lead to . Here are some rosario facts: [address] [facility] Emergency Department [address] [place] [address] Phone #: ext- [phone] 12/26/2020 18:31 Patient: LAURA NATION Sex: M : 1965 Age: 55y It can take 10 minutes or more to start to feel the effects of a drink. So it's easy to drink more than you planned. Binge drinking is having 5 or more drinks over a short time. This can lead to an alcohol overdose. One drink may be more than 1 serving of alcohol. In some cases, a drink can be 2 to 4 servings. This depends on the type of drink. It takes about 1 hour for your body to break down 1 serving of alcohol. If you have more than 1 drink, it c an take a few hours or more. People with alcohol abuse disorders are more likely to get alcohol poisoning. But it can happen to anyone who drinks too much alcohol. Even a first-time drinker is at risk. Many things affect how drinks will affect you. These include: o If you've eaten o How fast you drink o Your weight o How much you normally drink (or not) o Medicines you are taking o If you have a chronic disease o If you are male or femaleSymptoms of alcohol intoxicationMild intoxication Feel more relaxed, less tense Slurred speech Sleepy Poor motor skillsModerate intoxication Changing behavior, aggression, depression Poor judgment Confusion [address] [facility] [place] [address] Phone #: ext- [phone] 12/26/2020 18:31 Patient: LAURA NATION Sex: M : 1965 Age: 55y Trouble focusing Poor balance and coordinationSevere intoxication Vomiting Seizures Fainting Cold, clammy skin Slow or irregular breathing Low body temperature (hypothermia) ComaHealth effectsAlcohol causes health problems. This can happen after only drinking a little. There is no set numberof drinks or amount of alcohol that is too much. How much you drink at 1 time affects your health. Andso does drinking often. Alcohol affects your whole body in these ways: Brain. Alcohol can harm parts of the brain that affect your ba oscar, memory, thinking, and feelings. It can cause memory loss, blackouts, depression, agitation, sleep cycle changes, and seizures. These changes may or may not be go away. Heart and vascular system. Alcohol affects many areas. It can damage heart muscle. This can cause the heart muscle to weaken and stretch (cardiomyopathy). This can lead to trouble breathing, an irregular heartbeat, atrial fibrillation, leg swelling, and heart failure. It makes the blood vessels stiffen. This causes high blood pressure. All of these problems raise your risk for heart attacks or strokes. Liver. Alcohol causes fat to build up in the liver. This affects how the liver works. And it raises the risk for hepatitis. This condition leads to belly pain, appetite loss, yellow skin and eyes (jaundice), and bleeding problems. It also leads to harmful changes in the liver. These include liver fibrosis and cirrhosis. This can affect your ability to fight off infections. These liver changes stop it from removing toxins in your blood. This can cause a brain disease called encephalopathy. Pancreas. Alcohol can cause inflammation of the pancreas. This is called pancreatitis. It can lead to belly pain, fever, and diabetes. Immune system. Alcohol weakens your immune system. This makes it harder to fight off [address] [facility] Emergency Department [address] [place] [address] Phone #: ext- [phone] 12/26/2020 18:31 Patient: LAURA NATION Sex: M : 1965 Age: 55y infections and colds. You will also have a higher risk of some infections. Cancer risk. Alcohol raises your risk of some types of cancer. They include cancer of the mouth, esophagus, pharynx, larynx, liver, and breast. Sexual function. Alcohol abuse can also lead to sexual problems.Alcohol use in may cause lifelong harm to the baby. It can a lso cause a group of defectscalled alcohol spectrum disorder. These defects can include physical problems. They can alsoinclude behavior and learning problems.Home care for alcohol intoxicationFollow these tips to care for yourself at home: Don't drink any more alcohol. Don't drive until all effects of the alcohol have worn off. Don't use machinery that can cause injuries. Get lots of rest over the next few days. Drink plenty of water and other drinks that do not have alcohol. Try to eat regular meals.If you have been drinking a lot every day, you may have alcohol withdrawal. Symptoms often last 3 to4 days. They may include: Nervousness Shakiness Nausea Sweating SleeplessnessThey may also include severe symptoms. These are known as delirium tremens (DTs). They include: Seizures Confusion Seeing or hearing things that are not there (hallucinations)Alcohol withdrawal can cause . Contact your healthcare provider before you stop drinking. Theymay be able to help you with medicine. They can also refer you to an inpatient detox program. Or [address] [facility] Emergency Department [address] [place] [address] Phone #: ext- [phone] 12/26/2020 18:31 Patient: LAURA NATION Sex: M : 1965 Age: 55ystay with family or friends who can help and support you. If you have severe symptoms, contact yourprovider or call 911 for help (see below).Follow-up careThese groups can help you and your loved one: Alcoholics Anonymous (A.A.) gives support through a self-help fellowship. Find A.A. meetings near you at www.aa.org. Al-Anoamara gives support to families. Call 746-527-0909, or go to www.al-anon.org. National [place] on Alcoholism and Drug Dependence (NCADD) has helpful resources. NCADD can be reached at 385-317-3138 and www.ncadd.org.Call 359Tall 618 if any of these occur: Trouble breathing or slow irregular breathing Chest pain Sudden weakness on one side of your body or sudden trouble speaking Heavy bleeding or vomiting blood Very sleepy or having trouble waking up Fainting Fast heart rate SeizureWhen to seek medical adviceCall your healthcare provider right away if any of these occur: Severe shakiness Fever of 100.4F (38C) or higher, or as directed by your provider Confusion or hallucinations Pain in your upper belly that gets worse Repeated vomiting [address] [facility] Emergency Department [address] [place] [address] Phone #: ext- [phone] 12/26/2020 18:31 Patient: LAURA NATION Sex: Tala : 1965 Age: 55y [id number] [place] [address]. All rights reserved. This information is not intended as asubstitute for professional medical care. Always follow your healthcare professional's instructions.Pneumonia (Adult)Pneumonia is an infection deep in the lungs. It is in the small air sacs (alveoli). It may be caused by avirus, fungus, or bacteria. Pneumonia caused by bacteria is often treated with an antib iotic. Severecases may need to be treated in the hospital. Milder cases can be treated at home. Pneumoniasymptoms are a lot like flu symptoms. They include fever, cough (dry or with phlegm), headache,muscle weakness, and pain. These symptoms often get worse in the first 2 days. But they often startto get better in the first week of treatment. [address] [facility] Emergency Department [address] [place], [place] [id number] Phone #: ext- [phone] 12/26/2020 18:31 Patient: LAURA NATION Sex: M : 1965 Age: 55[facility] [facility] these guidelines when caring for yourself at home: Get plenty of rest. Don't let yourself get overly tired when you go back to your activities. Participate in activities as directed by your healthcare provider. Stop smoking. This is the most important step you can take to help treat pneumonia. If you need help stopping smoking, talk with your healthcare provider. Stay away from smoke and other irritants. Stay away from secondhand smoke. Don't let anyone smoke in your home. Prevent lung infections. Ask your [facility] provider about the flu and pneumonia vaccines. Take steps to prevent colds and other lung infections. Practice correct handwashing. Wash your hands often with soap and water. Use hand warehouse manager when you can't wash your hands. Stay away from crowds during cold and flu season. Use pain medicine as directed. You may use acetaminophen or ibuprofen to control fever or pain, unless another medicine was prescribed. If you have chronic liver or kidney disease, talk with your healthcare provider before using these medicines. Also talk with your provider if you've had a stomach ulcer or GI (gastrointestinal) bleeding. Don't give aspirin to a child younger than age 19 unless directed by the provider. Taking aspirin can put a child at risk for Corby syndrome. This is a rare but very serious disorder. It most often affects the brain and the liver. Eat a light diet as needed. You may not feel like eating, so a light diet is fine. Follow the treatment plan as advised by your healthcare provider. Drink plenty of water and fluids. This can make mucus thinner and easier to cough up. Ask your healthcare provider how much water you should drink. For many people, 6 to 8 glasses (8 ounces each) a day is a good goal. Other fluids include sport drinks, sodas without caffeine, juices, tea, or soup. If you also have heart or kidney disease, check with your provider before you drink extra fluids. Finish all prescription medicine. Take antibiotic or antiviral medicine as prescribed by your healthcare provider, even if you are feeling better after a few days. Take the medicine until it is all gone. Try to stay away from air pollution. If you live in an area with air pollution, track the Air Quality Index (AQI) reports and plan your outdoor activities with the AQI recommendations in mindFollow-up careFollow up with your healthcare provider in the next 2 to 3 days, or as advised. This is to be sure the [address] [facility] Emergency Department [address] [place] [address] Phone #: ext- [phone] 12/26/2020 18:31 Patient: LAURA NATION Sex: M : 1965 Age: 55ymedicine is helping you get better.If you are 65 or older, you should get a pneumococcal vaccine and a yearly flu (influenza) shot. Youshould also get these vaccines if you have chronic lung disease such as asthma, emphysema, orCOPD. A second type of pneumonia vaccine is also available for people over age 65 and thoseyounger than 65 with certain health conditions. Talk with your healthcare provider about whichpneumococcal vaccine is best for you.Call [phone] any of these occur: Unable to speak or swallow Lips or skin looks blue, purple, or plascencia Feeling dizzy or faint Unable to wake up or loss of consciousness Feeling of doom Trouble breathing or wheezing Shortness of breath gets worse or doesn't get better with treatment Rapid breathing (more than 25 breaths per minute) Coughing up blood Chest pain gets worse with breathing or doesn't get better with treatmentWhen to get medical adviceCall your healthcare provider right away if any of these occur: You don't get better in the first 2 days of treatment Fever of 100.4F (38C) or higher, or as directed by your healthcare provider Shaking chills Cough with phlegm that doesn't get better, or get worse Shortness of breath with activities Weakness, dizziness, or fainting that gets worse Thirst or dry mouth that gets worse [address] [facility] Emergency Department [address] [place] [address] Phone #: ext- [phone] 12/26/2020 18:31 Patient: LAURA NATION Sex: M : [birth year] Age: 55y Sinus pain, headache, or a stiff neck Chest pain with breathing or coughing Symptoms that get worse or not improving [employer]. [address] [place] [address]. All rights reserved. This information is not intendedas a substitute for professional medical care. Always follow your healthcare professional's instructions. You have been given the following additional information: Alcohol Intoxication Pneumonia (Adult) Stay with responsible adult family member (or other responsible adult).(Electronically signed by Marleny Ascencio MD 12/28/2020 23:52) Name Value Range Interpretation Code Description Data Riana rce(s) Supporting Document(s) ID Date Data Source [id number] 12/26/2020 06:32:[address] [facility] 1 Clinical Report - Nurses [facility] Emergency Department [address] [place] [address] Phone #: ext- [phone] 12/26/2020 18:31 Patient: LAURA NATION Sex: M : 1965 Age: 55yTRIAGEArrived by EMS. Historian: patient. Unaccompanied. ( ems was called for welfare check and pt foundintoxicated and covered in feces unable to take care of hisself).Acuity: LEVEL 4.Chief Complaint: (intoxicated).This started today.Treatment TOP CAGER:None.SEPSIS SCREEN: SIRS SCREEN NEGATIVE. SEPSIS SCREEN NEGATIVE. No suspected or confirmedsigns of infection present. --18:48 12/26/20 Delia Duncan R.N.18:41 12/26/20. BP: 159/89. MAP: 112. HR: 83. RR: 16. O2 saturation: unable to obtain. Temp: 98.1 F.Pain level now: 0/10. --18:48 12/26/20 Delia Duncan R.N.Weight: 63.5 kg stated. Height/Length: 67 inches Per Patient. BMI: 21.9. --18:40 12/26/20 Delia Duncan R.N.MedicationsNone. --18:43 12/26/20 Delia Duncan R.N.AllergiesNone. --18:43 12/26/20 Delia Duncan R.N.PROBLEMS:Hypertension.Diabetes Mellitus.Alcoholism.High iron in blood. --18:58 12/26/20 Delia Duncan R.N.ADDITIONAL SURGERIES:no known surg eries.HistoryPAST MEDICAL HX: Immunizations: status is unknown.SOCIAL HX: Never smoker. Heavy alcohol use. Heavy drug use: marijuana. HIV testing offered topatient. Patient education was provided. Hepatitis C testing offered to patient. Patient education wasprovided. Unknown if he has traveled outside the [place] 2 Clinical Report - Nurses [facility] Emergency Department [address] [place] [address] Phone #: ext- [phone] 12/26/2020 18:31 Patient: LAURA NATION Sex: M : 1965 Age: 55y Infectious disease exposure: No infectious disease exposure. It is unknown if the patient has been exposed to Coronavirus. (states he has been vaccinated). Patient is not a known carrier of tuberculosis, hepatitis, HIV, MRSA or VRE. Patient is not a known carrier of CRE. SELF HARM ASSESSMENT: Self harm assessment was performed. Unable to assess the patient in regard to the question(s) "Have you recently felt down, depressed, or hopeless?" and "Do you have thoughts of harming or killing yourself?". ABUSE ASSESSMENT: Abuse assessme nt. Abuse denied. No suspicion of abuse. No report of abuse. FUNCTIONAL ASSESSMENT: Functional assessment: no impairments noted. LEARNING NEEDS ASSESSMENT: The learning needs assessment revealed no barriers. FALL RISK ASSESSMENT: Fall risk assessment completed. Risk factors identified include patient impairment of mobility. Fall interventions initiated. Patient placed on stretcher. Side rails up. Call light in reach of patient. Instructions given to patient including fall prevention information and pamphlet. Verbalizes understanding. NUTRITIONAL RISK ASSESSMENT: The patient has experienced recent weight loss. SKIN INTEGRITY ASSESSMENT: Skin integrity risk assessment completed. No skin integrity risk identified. --18:48 12/26/20 Delia Duncan R.N. SOCIAL HX: The patient has not traveled outside the [place] Infectious disease exposure: No infectious disease exposure. --10:48 12/27/20 Delia Duncan R.N. Interventions Identification band on patient. To treatment room. --18:48 12/26/20 Delia Duncan R.N.PHYSICAL ASSESSMENTGENERAL / NEURO / PSYCH: The patient is disoriented to person, place, time and situation. (intoxicated).HEENT: Mucous membranes are pink.RESPIRATORY: Respirations not labored. Chest nontender. Breath sounds within normal limits.CVS: Pulses within normal limits.SKIN: Skin is warm. --18:48 12/26/20 Delia Duncan R.N.NURSING PROGRESS NOTESReassurance given. Two patient identifiers checked. Call light placed in reach. Side rails up x 2. Bedplaced in lowest position. Brakes of bed on. Patient ready for evaluation. --18:49 12/26/20 Delia Duncan R.N. 18:50 12/26/2020 Ativan (LORazepam) IM 2 mg given. Given in the left deltoid. Allergies verified and 3 Clinical Report - Nurses [facility] Emergency Department [address] [place] [address] Phone #: ext- [phone] 12/26/2020 18:31 Patient: LAURA NATION Sex: M : 1965 Age: 55yconfirmed 5 rights. Information reviewed with patient including reason for taking this medication, signs ofallergic reaction, precautions and sedative warning. Verbalizes understanding. --18:50 12/26/20 Delia Duncan R.N.18:50 12/26/2020 HALDOL (Haloperidol Lactate) IM 10 mg given. Given in the left deltoid. Allergies verifiedand confirmed 5 rights. Information reviewed with patient including reason for taking this medication, signsof allergic reaction, precautions and sedative warning. Verbalizes understanding. --18:50 12/26/20 Delia Duncan R.N.18:50 12/26/2020 Benadryl (diphenhydrAMINE HCl) IM 50 mg given. Given in the left deltoid. Allergiesverified and confirmed 5 rights. Information reviewed with patient including reason for taking thismedication, signs of allergic reaction, precautions and sedative warning. Verbalizes understanding.--18:50 12/26/20 Delia Duncan R.N.20:02 12/26/2020 Site #1 started via IV in the right forearm with an 20g angiocath, with aseptic techniqueand good blood return; one attempt. Saline lock flushed with 10 mL saline. --20:02 12/26/20 PARK Pan20:02 12/26/2020 Started bag #1 1000 mL IV Fluids NS; bolus of 1000 mL then at 1000 mL/hr via site #1via IV pump. Allergies verified and confirmed 5 rights. IV patency established. IV site checked: no pain,redness, or swelling. IV flushed thoroughly pre- and post-medication administration. Information reviewedwith patient including reason for taking this medication, signs of allergic reaction and precautions.Verbalizes understanding. --20:02 12/26/20 Herbert Maravilla RN20:48 12/26/2020 Started 2 gm of Magnesium Sulfate IVPB in bag #1 50 mL; at 2 gm/hr via site #1. via IVpump. Allergies verified and confirmed 5 rights. IV patency established. IV site checked: no pain, redness,or swelling. IV flushed thoroughly pre- and post-medication administration. Information reviewed wit hpatient including reason for taking this medication, signs of allergic reaction and precautions. Verbalizesunderstanding. --20:48 12/26/20 Herbert Maravilla RNThe patient is resting quietly and sleeping and has had no adverse reaction.RESPIRATORY: No respiratory distress. Breath sounds normal.SKIN: Skin is warm and dry. Skin color within normal limits. Call light placed in reach. Side rails up x 1.Bed placed in lowest position. Brakes of bed on. --21:43 12/26/20 LydiaWin21:48 12/26/2020 Magnesium Sulfate IVPB via IV site #1 Discontinued: completed. Total amount infused:50 mL. IV patency established. IV site checked: no pain, redness, or swelling. IV flushed thoroughly.--00:57 12/27/20 Soumya Maravilla R.N.22:45 12/26/2020 IV Fluids NS via IV site #1 Discontinued: completed. Total amount infused: 1000 mL. IVpatency established. IV site checked: no pain, redness, or swelling. IV flushed thoroughly. --00:58 12/27/20Soumya Maravilla R.N.23:39 12/26/2020 Started 1 gm of ROCEPHIN (1GM/50ML) (cefTRIAXone Sodium) IVPB in bag #1 50 mL; 4 Clinical Report - Nurses [facility] Emergency Department [address] [place] [address] Phone #: ext- [phone] 12/26/2020 18:31 Patient: LAURA NATION Sex: M : 1965 Age: 55yat 100 mL/hr via site #1. via IV pump. Allergies verified and confirmed 5 rights. IV patency established. IVsite checked: no pain, redness, or swelling. IV flushed thoroughly pre- and post-medication administration.Information reviewed with patient including reason for taking this medication. Verbalizes understanding.--23:40 12/26/20 Soumya Maravilla R.N.00:10 12/27/2020 ROCEPHIN (1GM/50ML) IVPB via IV site #1 Discontinued: completed. Total amountinfused: 50 mL. IV patency established. IV site checked: no pain, redness, or swelling. IV flushedthoroughly. --00:56 12/27/20 Soumya Maravilla R.N.00:46 12/27/2020 Started 500 mg of Azithromycin IVPB in bag #1 250 mL; at 250 mL/hr via site #1. via IVpump. Allergies verified and confirmed 5 rights. IV patency established. IV site checked: no pain, redness,or swelling. IV flushed thoroughly pre- and post-medication administration. Information reviewed withpatient including reason for taking this medication. Verbalizes understanding. --00:57 12/27/20 Soumya Haywood R.N.23:00 12/26/20. BP: 103/69. MAP: 80. HR: 64. RR: 16. O2 saturation: 62%. --01:04 12/27/20 Soumya Haywood R.N.The patient is sleeping. --01:05 12/27/20 Soumya Maravilla R.N.00:05 12/27/20. BP: 151/83. MAP: 105. HR: 62. RR: 13. O2 saturation: 96%. --01:05 12/27/20 Soumya Haywood R.N.Blood samples drawn: blood culture. Patient ID band checked for patient name and birthdate: patientconfirmed. COVID-19 specimen obtained by RN. Labeled in the presence of the patient and sent to lab.--01:06 12/27/20 Soumya Maravilla R.N.01:00 12/27/20. BP: 130/79. MAP: 96. HR: 69. RR: 20. O2 saturation: 93%. --01:08 12/27/20 Soumya Haywood R.N.The patient is sleeping. ( incontinent care provided. pt back to sleep. in view of nursing station. SRupX2 for safety.). --01:08 12/27/20 Soumya Maravilla R.N.The patient is resting quietly. Overall patient status is improved- he states feels better.RESPIRATORY: No respiratory distress. Breath sounds normal.SKIN: Skin is warm. Skin color within normal limits. --04:16 12/27/20 Herbert Maravilla RN05:00 12/27/20. BP: 138/81. MAP: 100. HR: 85. RR: 18. O2 saturation: 98%. Pain level now unable toobtain. --06:12/27/20 Soumya Maravilla R.N.( Pt awake, states that he wants to get out of here. Gave permission for Medical staff to give information tohis Mother Lois Torres at [phone] (cell) Lois was contacted by phone and She statesshakira Sanchez's sister (who is his other next of kin) Yajaira maxwell at [phone] is unavailable as she has towork. Mother updated as to findings of tests and states that she will come to get him, but is interested to 5 Clinical Report - Nurses [facility] Emergency Department [address] [place] [address] Phone #: ext- [phone] 12/26/2020 18:31 Patient: LAURA NATION Sex: M : 1965 Age: 55y speak to the elementary school social worker. She states that she is coming from [place] and that it takes 3 hrs to get here. She did not plan to leave right away as she had stuff that she needed to attend to and agreed to call us when she is on the way.). --06:06 12/27/20 Soumya Maravilla R.N. The patient is sleeping. --06:07 12/27/20 Soumya Maravilla R.N. The patient is sleeping. ( Call placed to Case Management, States that she can be contacted when Mother calls or is here to knot picker cloth pt.). --06:52 12/27/20 Soumya Maravilla R.N. ( continue to wait for ride to knot picker cloth pt, ride called and stated it would take her 3 hours before she would arrive, pt cooperative and eating breakfast a present). --09:21 12/27/20 Delia Ragland R.N. 10:34 12/27/2020 Site #1 removed upon discharge. Pressure dressing applied. --10:49 12/27/20 Delia Duncan R.N. 10:49 12/27/2020 Azithromycin IVPB via IV site #1 Discontinued: completed. Total amount infused: 250 mL. --10:49 12/27/20 Delia Duncan R.N.DISPOSITION / DISCHARGE Condition at departure: improved. No learning barriers present. Discharge instructions provided and reviewed with the patient and family. Reviewed medication(s) side effects, precautions, dosing and course information. Prescription(s) given to the patient and sent electronically to pharmacy. Patient verbalized understanding. Written instructions provided in Syrian. The patient was discharged home and accompanied by parent. He left in a wheelchair and via private vehicle. Family member driving. --10:48 12/27/20 Delia Duncan R.N. 10:47 12/27/20. BP: 152/77. MAP: 102. HR: 93. RR: 0. O2 saturation: 96%. Temp: 98.6 F. Pain level now: 0/10. --10:48 12/27/20 Delia Duncan R.N. Departure time: 10:48 12/27/2020. --10:48 12/27/20 Delia Duncan R.N.Locked/Released at 12/27/2020 10:49 by Delia Duncan R.N. Name Value Range Interpretation Code Description Data Riana rce(s) Supporting Document(s) ID Date Data Source [id number] 12/26/2020 06:32:[address] [facility] 1 Clinical Report - Physicians/Mid Levels [facility] Emergency Department [address] [place] [address] Phone #: ext- [phone] 12/26/2020 18:31 Patient: LAURA NATION Sex: M : 1965 Age: 55y Arrived- By ambulance. Historian- EMS personnel.HISTORY OF PRESENT ILLNESS Chief Complaint: INTOXICATED. Duration of substance abuse- years. Unknown as to when symptoms started. Substances abused: Alcohol. (unknown). No fever, chills, nausea, vomiting or diarrhea. No abdominal pain, tremors, seizure, agitation or delusions. No hallucinations or suicidal thoughts. Not confused or paranoid. Has not been depressed. The symptoms are described as severe. EMS. Historian: patient. Unaccompanied. ( ems was called for welfare check and pt found intoxicated and covered in feces unable to take care of himself. Similar symptoms previously. None. Recent medical care: Not recently seen/assessed.REVIEW OF SYSTEMSThe patient has had weakness,, weakness, and easy bruising but not had weight loss. No sweats,headache, dizziness or chest pain or pain. No palpitations, black stools, bloody stools or sore throat orthroat. No cough, difficulty breathing or difficulty with urination or urination. No joint pain or pain, chills,fever or double vision. No eye irritation, ear pain, nasal congestion, epistaxis or cough. No difficultybreathing, abdominal pain, diarrhea, nausea or vomiting. No urinary frequency, hematuria, back pain,neck pain or skin rash. No headache, seizure or extremity swelling. The patient has had difficultywalking. He has had difficulty walking.PAST HISTORYSee nurses notes. Problems: Hypertension. Alcoholism. Diabetes Mellitus. High iron in blood. Additional Surgeries: no known surgeries. Medications: None. Allergies: 2 Clinical Report - Physicians/Mid Levels [facility] Emergency Department [address] [place] [address] Phone #: ext- [phone] 12/26/2020 18:31 Patient: LAURA NATION Sex: M : 1965 Age: 55y None.SOCIAL HISTORYHeavy alcohol use.ADDITIONAL NOTESThe nursing notes have been reviewed.PHYSICAL EXAMVital Signs: 12/27/2020 01:00 BP: 130/79. MAP: 96. HR: 69. RR: 20. O2 saturation: 93%.12/27/2020 00:05 BP: 151/83. MAP: 105. HR: 62. RR: 13. O2 saturation: 96%.12/26/2020 23:00 BP: 103/69. MAP: 80. HR: 64. RR: 16. O2 saturation: 62%.12/26/2020 18:41 BP: 159/89. MAP: 112. HR: 83. RR: 16. Temp: 98.1 F. Pain level now: 0/10. Have beenreviewed and appear to be correct. Blood pressure normal. Heart rate normal. Respiratory rate normal.Temperature normal. Oxygen saturation normal.Appearance: Alert. The patient is agitated. (unkempt, covered in feces).Head: Head atraumatic.Eyes: Pupils equal, round and reactive to light.ENT: Airway intact. Dry mucous membranes present.Neck: Normal inspection. Neck supple.CVS: Normal heart rate and rhythm. Heart sounds normal. Pulses normal.Respiratory: No respiratory distress.Abdomen: Soft and nontender.Back: No CVA tenderness.Skin: (multiple abrasions and bruises to lower ext bilaterally).Extremities: Extremities exhibit normal ROM. No lower extremity edema.Neuro: Alert. Cranial nerves normal (as tested). No motor deficit. No sensory deficit.LABS, X-RAYS, AND EKGLaboratory Tests: COVID-19 CAH: (RISHABH: 12/27/2020 00:35) ( MsgRcvd 12/27/2020 00:58) Final results Test Result Flag Units (Reference) COVID-19 NOT DETECTED COVID-19 REENTER NOT DETECTED PROCEDURAL CONTROL VALID KIT LOT # _[id number] 12/27/20.LBS. . . KIT EXP DATE _82-68-06 12/27/20.LBS. . . NORMAL RANGE IS NOT DETECTEDThe COVID-19 assay is a rapid molecular in vitro diagnostic testutilizing an isothermal nucleic acid amplification technology for thequalitative detection of nucleic acid from the SARS-CoV-2 viral RNA in directnasal or nasopharyngeal swabs. Testing should be performed within the first 7days of the onset of symptoms.NEGATIVE RESULTS SHOULD BE TREATED PRESUMPTIVE AND, IF INCONSISTENT WITHCLINICAL SIGNS AND SYMPTOMS OR NECESSARY FOR PATIENT MANAGEMENT, SHOULD BETESTED WITH DIFFERENT AUTHORIZED OR CLEARED MOLECULAR TESTS. NEGATIVE RESULTSDO NOT PRECLUDE SARS-CoV-2 INFECTION AND SHOULD NOT BE USED THE SOLE BASISFOR PATIENT MANAGEMENT DECISIONS. CT Head W/O Cont: (RISHABH: 12/26/2020 19:15) ( MsgRcvd 12/26/2020 23:07) In Progress CT HEAD W/O CONTRAST Reason(s): Altered Mental Status 3 Clinical Report - Physicians/Mid Levels [facility] Emergency Department [address] [place] [address] Phone #: ext- [phone] 12/26/2020 18:31 Patient: LAURA NATION Sex: M : 1965 Age: 55yTRANSPORTATION: S IV? O2? Oxygen?(No) Room: ED Exam CT HEAD W/[place] [address] PHONE: [phone] FAX: [phone] Name .................. : RIOS SANCHEZ Acct Number.................. : [id number] ROOM. ................. : [facility] MR Number ................... : [id number] Stay type ............. : E/R Discharge Date......... ... : Admit Date ......... : 12/26/20 Admit Phys .................... : COONEYNORM Date of ....... : 1965 Family Phys ................... : NO PCP Phone .................. : Age ................................ : 55 Film# .................. .:[id number] Sex ................................. : M Unsigned transcriptions are preliminary reports and do not represent a medical or legal document CT HEAD W/O CONTRAST [id number] COMPLETE:12/26/20 20:50 AML [id number] Reason(s): Altered Mental Status CT BRAIN WITHOUT IV CONTRAST INDICATION: Altered mental status, memory loss COMPARISON: None CONTRAST: None One or more of the following dose reduction techniques were utilized in effectively lowering the radiation dose for this examination: Automated Exposure Control, Adjustment of the mA and/or kV according to patient size, or Iterative Reconstruction. FINDINGS: The ventricles, cisterns, sulci are normal for the patient's age. Plascencia white differentiation is intact. No acute infarction or hemorrhage. No midline shift or mass effect. No mass identified. No extra-axial fluid collections. No lesions are seen in the skull. Visualized sinuses are clear. IMPRESSION: Negative study. Preliminary report for this exam was provided by Jill. Electronically Reviewed and Signed By MAGDALENA RAMOS JWS Transcribe Initials: CHAPARRITA , Transcribe Date: 12/26/20 22:59, Dictation Date: <<REPDIST>> Page 1 of 1CBC w Diff: (RISHABH: 12/26/2020 19:14) ( MsgRcvd 12/26/2020 19:22) Final results 4 Clinical Report - Physicians/Mid Levels [facility] Emergency Department [address] [place] [address] Phone #: ext- [phone] 12/26/2020 18:31 Patient: LAURA NATION Sex: M : [birth year] Age: 55y Test Result Flag Units (Reference) CBC W/AUTOMATED DIFF COMPLETE BLOOD COUNT WBC 4.4 10/uL (4.2 - 11.0) RBC 3.78 L 10/uL (4.50 - 6.30) HEMOGLOBIN 13.4 L g/dL (14.0 - 16.0) HEMATOCRIT 37.9 L % (41.0 - 51.0) MCV 100.3 H fL (80.0 - 94.0) MCH 35.4 H pg (27.0 - 34.0) MCHC 35.4 g/dL (31.0 - 36.0) RDW 12.9 % (11.5 - 14.8) PLATELETS 108 L 10/uL (150 - 450) MPV 9.4 fL (7.4 - 10.4) NEUT 60.7 % (37.0 - 80.0) LYMPH 25.1 % (25.0 - 40.0) MONO 11.2 H % (3.0 - 8.0) EOS 0.7 % (0.0 - 7.0) BASO 1.8 % (0.0 - 2.0) %IG 0.5 H % (0.0 - 0.0) %NRBC 0.0 % (0.0 - 0.0) #NEUT 2.66 10/uL (2.00 - 6.90) #LYMPH 1.10 10/uL (0.60 - 3.40) #MONO 0.49 10/uL (0.00 - 0.90) #EOS 0.03 10/uL (0.00 - 0.70) #BASO 0.08 10/uL (0.00 - 0.20) #IG 0.02 10/uL (0.00 - 0.10) #NRBC 0.00 10/uL (0.00 - 0.00) MANUAL DIFF NOT INDICATED RBC MORPH NOT INDICATEDCMP: (RISHABH: 12/26/2020 19:14) ( MsgRcvd 12/26/2020 19:58) Final results Test Result Flag Units (Reference) COMPREHENSIVE METABOLIC PANEL COMPREHENSIVE METABOLIC PANEL SODIUM 140 mEq/L (134 - 153) POTASSIUM 4.0 mEq/L (3.6 - 5.0) CHLORIDE 96 L mEq/L (98 - 107) CO2 23 MEQ/L (22 - 30) GLUCOSE 73 MG/DL (70 - 99) BUN 12 MG/DL (7 - 21) CREATININE 0.7 MG/DL (0.7 - 1.5) BUN/CREAT 17 (8 - 27) TOTAL PROTEIN 7.2 G/DL (6.3 - 8.2) ALBUMIN 4.8 G/DL (3.9 - 5.0) GLOBULIN 2.4 GM/DL (2.4 - 3.2) A/G RATIO 2.0 (0.8 - 2.0) CALCIUM 9.0 MG/DL (8.4 - 10.2) TOTAL BILI 1.2 MG/DL (0.2 - 1.3) ALKALINE PHOS 91 U/L (38 - 126) SGOT/AST 186 H U/L (5 - 40) SGPT/ALT 120 H U/L (7 - 56) ANION GAP 21.0 H mmol/L (8.0 - 16.0) AGE 55 yrs NON-AA GFR >60 mL/min AFR AMER GFR >60 mL/min Male GFR Interprentation 20-49 yrs >60 mL/min Cynqtm81-46 yrs >56 mL/min Normal 60-69 yrs >49 mL/min Normal 70-79yrs>42 mL/min Normal 80 and above >35 mL/min Normal Female GFR 5 Clinical Report - Physicians/Mid Levels [facility] Emergency Department [address] [place] [address] Phone #: ext- [phone] 12/26/2020 18:31 Patient: LAURA NATION Sex: M : 1965 Age: 55yInterpretation 20-39 yrs >60 mL/min Normal 40-49 yrs >58 mL/minNormal 50-59 yrs >51 mL/min Normal 60-69 yrs >45 mL/min Ahprws99-29 yrs >39 mL/min Normal 80 and above >32 mL/min NormalTroponin-T: (RISHABH: 12/26/2020 19:14) ( [facility] 12/26/2020 19:47) Final results Test Result Flag Units (Reference) TROPONIN T <0.01 NG/ML (0.00 - 0.10) TROPONIN T0.1 ng/ml Recommended as the clinical threshold value forTroponin T.TSH: (RISHABH: 12/26/2020 19:14) ( IdgRcvd 12/26/2020 20:04) Final results Test Result Flag Units (Reference) TSH 1.85 uIU/mL (0.47 - 5.01)Magnesium: (RISHABH: 12/26/2020 19:14) ( IdgRcvd 12/26/2020 19:58) Final results Test Result Flag Units (Reference) MAGNESIUM 1.5 L MG/DL (1.7 - 2.2)Lipase: (RISHABH: 12/26/2020 19:14) ( [facility] 12/26/2020 19:58) Final results Test Result Flag Units (Reference) LIPASE 109 H U/L (13 - 60)Drug Screen-Urine: (RISHABH: 12/27/2020 02:40) ( [facility] 12/27/2020 03:07) Final results Test Result Flag Units (Reference) DRUG SCREEN URINE URINE DRUG SCREEN AMPHETAMINES NEGATIVE (NORMAL: NEGAT BARBITURATES NEGATIVE (NORMAL: NEGAT BENZO NEGATIVE (NORMAL: NEGAT COCAINE NEGATIVE (NORMAL: NEGAT THC NEGATIVE (NORMAL: NEGAT OPIATES NEGATIVE (NORMAL: NEGAT PCP NEGATIVE (NORMAL: NEGAT \\BLDo\\URINE DRUG SCREEN INTERPRETATION\\BLDx\\ THE CUTOFFF LEVELS FORDETECTION ARE FOLLOWS: AMPHETAMINES 1000 ng/mlBARBITUARATES 200 ng/ml BENZODIAZEPINES 100 ng/mlTHC 50 ng/ml PHENCYCLIDINE 25 ng/mlOPIATES 300 ng/ml COCAINE 300 ng/mlALL POSITIVES ARE CONSIDERED PRESUMPTIVE POSITIVE CONFIRMATION WILL BE PERFORMED AT PHYSICIANREQUEST.UA REFLEX TO UA CULTURE: (RISHABH: 12/27/2020 02:40) ( [facility] 12/27/2020 02:52) Final results Test Result Flag Units (Reference) UA REFLEX TO UA CULTURE URINALYSIS SOURCE R COLOR yellow (NORMAL: Yello CLARITY hazy (NORMAL: Clear SPEC GRAVITY 1.015 (1.001 - 1.030 pH 5 (5 - 9) GLUCOSE NORM (NORMAL: Negat BILIRUBIN NEG (NORMAL: Negat 6 Clinical Report - Physicians/Mid Levels [facility] Emergency Department [address] [place] [address] Phone #: ext- [phone] 12/26/2020 18:31 -- Patient: LAURA NATION Sex: M : 1965 Age: 55y KETONE 15 A (NORMAL: Negat PROTEIN NEG (NORMAL: Negat NITRITE NEG (NORMAL: Negat BLOOD 10 A (NORMAL: Negat LEUK EST 500 A (NORMAL: Negat UROBILINOGEN NOR (less than 1.0 MICROSCOPIC See Below WBC 40 - 50 A (NORMAL: NONE RBC 0 - 1 (NORMAL: NONE EPITHELIAL MODERATE A (NORMAL: NONE BACTERIA 2+ MOD A (NORMAL: NONE MUCOUS 1+ (NORMAL: NONEETOH: (RISHABH: 12/26/2020 19:14) ( [facility] 12/26/2020 19:58) Final results Test Result Flag Units (Reference) ALCOHOL 386.0 MG/DL ALCOHOL % 0.39 HH % (0.00 - 0.01) *FOR MEDICAL PURPOSES ONLY*Chest Portable 1 View: (RISHABH: 12/26/2020 19:05) ( [facility] 12/26/2020 23:08) [place](s): CongestionTRANSPORTATION: P IV? O2? Oxygen?(No) Room: ED [place] [address] PHONE: [phone] FAX: [phone] Name .................. : RIOS SANCHEZ Acct Number.................. : [id number] ROOM. ................. : [facility] MR Number ................... : [id number] Stay type ............. : E/R Discharge Date......... ... : Admit Date ......... : 12/26/20 Admit Phys .................... : COONEYNORM Date of ....... : 1965 Family Phys ................... : NO PCP Phone .................. : Age ................................ : 55 Film# .................. .:[id number] Sex ................................. : M Un signed transcriptions are preliminary reports and do not represent a medical or legal document CHEST PORTABLE [id number] COMPLETE:12/26/20 20:08 [facility] [address] Reason(s): Congestion FRONTAL AND LATERAL CHEST 2 VIEWS INDICATION: Congestion COMPARISON: None FINDINGS: Mediastinal and hilar structures are normal. Cardiac silhouette is unremarkable. Patchy opacities are seen in both lower lobes which could be atelectasis or pneumonia. Upper lobes are clear. No pleural effusions or pneumothorax. Skeletal structures appear intact. IMPRESSION: Bilateral lower lobe atelectasis versus pneumonia. 7 Clinical Report - Physicians/Mid Levels [facility] Emergency Department [address] [place] [address] Phone #: ext- [phone] 12/26/2020 18:31 ---- Patient: LAURA NATION Sex: M : 1965 Age: 55y Electronically Reviewed and Signed By RACHEL SIGNANNELIESE VALENTINE Transcribe Initials: CHAPARRITA , Transcribe Date: 12/26/20 23:08, Dictation Date: <<REPDIST>> Page 1 of 1.PROGRESS AND PROCEDURESCourse of Care: pt is an alcoholic who presents to the ED for evaluation. he was a wellness check andfound to be severely intoxicated and unable to walk. EMS further noted his house was uninhabitable dueto the filth and feces that was everywhere as per EMS. pt was very aggressive and it was determined thatpt needed to be chemically calmed so we could appropriately evaluate pt to determine if there is aninfectious or traumatic event that required emergent intervention. CT head shows no acute findings. CXRshows what appears to be a lower lobe pneumonia. labs reviewed. no significant abnormalities exceptan elevated alcohol level at approx 380. pt was given ivf and iv abx. pt slept overnight. there were noissues. I did speak to pt's mother, Kaycee Torres. she called. I informed her that I am limited as towhat information I can give her until patient gives consent since he is older than 18 years of age. Herphone number is [phone] cell, land line. At 03:00 pt awoke but was still groggy. Hehas no focal neuro deficits. Pt went back to sleep. At 05:25 patient awoke and he wanted to go home. Iexplained to him that we were informed him home is not fit for living at this point and time and that we wereplanning on calling social work in the am so they can find him a suitable place to sleep. He was veryupset about the situation and he wanted to know where his dogs were. I explained to him the fact that Iwas told they taken. He gave approval to speak to his mother Kaycee Torres and share everythingthat has occurred. Soumya NICK called his mother and explained to her what has occurred in the ED. She willcome knot picker cloth pt. Critical care performed. Time is exclusive of separately billable procedures. Time includes: direct patient care, patient reassessment, coordination of patient care, interpretation of data (laboratory data and chest xrays), review of patient's medical records, medical consultation, family consultation regarding treatment decisions and documentation of patient care- see progress notes. Procedures included in critical care time: peripheral IV placement- see progress notes. Patient/family counseled. Disposition: Discharged. Condition: good and stable.CLINICAL IMPRESSION Pneumonia. Alcohol intoxication. 8 Clinical Report - Physicians/Mid Levels [facility] Emergency Department [address] [place] [address] Phone #: ext- [phone] 12/26/2020 18:31 Patient: LAURA NATION Sex: M : 1965 Age: 55yINSTRUCTIONS Stay with responsible adult family member (or other responsible adult). No alcohol. (Take the antibiotic as instructed for your early pneumonia. please start attending rehab program and alcoholics anonymous meetings to help you get clean of your alcohol dependence. return if worse or any new symptoms.). Warnings: Further evaluation is necessary. GENERAL WARNINGS: Return or contact your physician immediately if your condition worsens or changes unexpectedly, if not improving as expected, or if other problems arise. Your Current Medications: . No home medication. Prescription Medications: Zithromax Z-Ced 250 mg tablet -- Take 2 tablets on the first day then one tablet daily for 4 days, total duration is 5 days. Dispense 6 tablet. Refills: 0. Substitution permitted. Pharmacy - [id number] - [id number] ; [place] [address]. . Follow-up: Follow up with your doctor even if well. Call for an appointment. Reason for referral: evaluation. Summary of care provided to patient via paper. Understanding of the discharge instructions verbalized by patient.(Electronically signed by Marleny Ascencio MD 12/28/2020 23:52) Name Value Range Interpretation Code Description Data Riana rce(s) Supporting Document(s) ID Date Data Source [id number] 12/28/2020 10:57:00 [place] [address] PHONE: [phone] FAX: [phone] Name ..............: RIOS SANCHEZ Acct Number ...........................: [id number] ROOM. ............: [facility] MR Number ............................: [id number] Stay type.........: E/R Discharge Date...............:12/27/20 Admit Date .....: 12/26/20 Admit Phys .............................: ........................COONEYNORM Date of ..: 1965 Family Phys ...........................: NO PCP Phone..............: Age.................................:55 Film# ...............:[id number] Sex.................................:M Unsigned transcriptions are preliminary reports and do not represent a medical or legal document EKG [id number] COMPLETE:12/27/20 05:16 AJ [id number] Please See Scanned Results. Name Value Range Interpretation Code Description Data Riana rce(s) Supporting Document(s) ID Date Data Source [id number] 12/27/2020 11:48:00 AM EDT [facility] [address] [place] [address] PHONE: [phone] FAX: [phone] Name .................. : RIOS SANCHEZ Acct Number.................. : [id number] ROOM. ................. : [address] Number ................... : [id number] Stay type ............. : E/R Discharge Date......... ... : Admit Date ......... : 12/26/20 Admit Phys .................... : COONEYNORM Date of ....... : 1965 Family Phys ................... : NO PCP Phone .................. : Age ................................ : 55 Film# .................. .:[id number] Sex ................................. : M Unsigned transcriptions are preliminary reports and do not represent a medical or legal document CHEST PORTABLE [id number] COMPLETE:12/26/20 20:08 [facility] [address] Reason(s): Congestion FRONTAL AND LATERAL CHEST 2 VIEWS INDICATION: Congestion COMPARISON: None FINDINGS: Mediastinal and hilar structures are normal. Cardiac silhouette is unremarkable. Patchy opacities are seen in both lower lobes which could be atelectasis or pneumonia. Upper lobes are clear. No pleural effusions or pneumothorax. Skeletal structures appear intact. IMPRESSION: Bilateral lower lobe atelectasis versus pneumonia. Electronically Reviewed and Signed By Daquan Norman MD , 12/27/20 11:48, JWMignon Transcribe Initials: DZ , Transcribe Date: 12/26/20 23:08, Dictation Date: Copy for: EMERGENCY DEPT via modem Copy for: 710 MED REC DISCHARGED Page 1 of 1 Name Value Range Interpretation Code Description Data Riana rce(s) Supporting Document(s) ID Date Data Source [id number] 12/27/2020 11:48:00 [place] [address] PHONE: [phone] FAX: [phone] Name .................. : RIOS SANCHEZ Acct Number.................. : [id number] ROOM. ................. : [address] Number ................... : [id number] Stay type ............. : E/R Discharge Date......... ... : Admit Date ......... : 12/26/20 Admit Phys .................... : COONEYNORM Date of ....... : 1965 Family Phys ................... : NO PCP Phone .................. : Age ................................ : 55 Film# .................. .:[id number] Sex ................................. : M Unsigned transcriptions are preliminary reports and do not represent a medical or legal document CT HEAD W/O CONTRAST [id number] COMPLETE:12/26/20 20:50 AML [id number] Reason(s): Altered Mental Status CT BRAIN WITHOUT IV CONTRAST INDICATION: Altered mental status, memory loss COMPARISON: None CONTRAST: None One or more of the following dose reduction techniques were utilized in effectively lowering the radiation dose for this examination: Automated Exposure Control, Adjustment of the mA and/or kV according to patient size, or Iterative Reconstruction. FINDINGS: The ventricles, cisterns, sulci are normal for the patient's age. Plascencia white differentiation is intact. No acute infarction or hemorrhage. No midline shift or mass effect. No mass identified. No extra-axial fluid collecti ons. No lesions are seen in the skull. Visualized sinuses are clear. IMPRESSION: Negative study. Preliminary report for this exam was provided by Jill. Electronically Reviewed and Signed By Daquan Norman MD , 12/27/20 11:48, JWMignon Transcribe Initials: CHAPARRITA , Transcribe Date: 12/26/20 22:59, Dictation Date: Page 1 of 2 [place] [address] PHONE: [phone] FAX: [phone] Name .................. : RIOS SANCHEZ Acct Number.................. : [id number] ROOM. ................. : [facility] Number ................... : [id number] Stay type ............. : E/R Discharge Date......... ... : Admit Date ......... : 12/26/20 Admit Phys .................... : COONEYNORM Date of ....... : 1965 Family Phys ................... : NO PCP Phone .................. : Age ................................ : 55 Film# .................. .:[id number] Sex ................................. : M Unsigned transcriptions are preliminary reports and do not represent a medical or legal document CT HEAD W/O CONTRAST [id number] COMPLETE:12/26/20 20:50 AML [id number] Reason(s): Altered Mental Status Copy for: EMERGENCY DEPT via modem Copy for: 710 MED REC DISCHARGED Page 2 of 2 Name Value Range Interpretation Code Description Data Riana rce(s) Supporting Document(s) ID Date Data Source [id number] 12/31/2020 11:17:[address] [facility] Name Value Range Interpretation Code Description Data Riana rce(s) Supporting Document(s) CULTURE URINE [facility] _CULTURE URINE_$$[id number]$$[id number]$$[id number]$$[id number]$$[id number]$$[id number]$$[id number]$$[id number]$$[id number]$$ [id number]$$[id number]$$125001$$408703$$171381$$588811$$[id number]$$852545$$438622$$772521$$ 655605$$772780$$615668$$266276$$723818$$[id number]$$[id number]$$[id number] -- Continued on next page --Patient: RIOS SANCHEZ Order: [id number] Page 2Culture: CULTURE URINE Status: Final ==== -- Continued on next page --Patient: RIOS SANCHEZ Order: [id number] Page 2Culture: CULTURE URINE Status: Prelim =====$$[id number]$$[id number] DATE/TIME: 12/31/2020 11:06Culture: CULTURE URINE Status: FinalUrine Culture,Comprehensive: I2Lrftt urogenital flora10,000-25,000 colony forming units per mL Previous result entered on 12/29/2020 06:45 ET No growth after 18-24 hours.P1 Test performed by: [facility] #: [id number] [address] [place] [address] [id number] [facility] [id number] Director : Maciel Martinez MD NPI #:Mechanical Spreader Operator : 12/30/[email or web address].SENT REF 12/31/20.1117.XMT.SENT REF ID Date Data Source [id number] 12/27/2020 03:06:[address] [facility] Name Value Range Interpretation Code Description Data Riana rce(s) Supporting Document(s) DRUG SCREEN URINE [facility] URINE DRUG SCREEN Amphetamine [Presence] in Urine by Screen method NEGATIVE NORMAL: N EGATIVE [facility] BARBITURATES NEGATIVE NORMAL: NEGATIVE [facility] BENZO NEGATIVE NORMAL: NEGATIVE [facility] COCAINE NEGATIVE NORMAL: NEGATIVE [facility] Tetrahydrocannabinol [Presence] in Urine NEGATIVE NORMAL: NEGATIVE [facility] OPIATES NEGATIVE NORMAL: NEGATIVE [facility] Phencyclidine [Presence] in Urine by Screen method NEGATIVE NOR MAL: NEGATIVE [facility] \\BLDo\\URINE DRUG SCR EEN INTERPRETATION\\BLDx\\ THE CUTOFFF LEVELS FOR DETECTION ARE FOLLOWS: AMPHETAMINES 1000 ng/ml BARBITUARATES 200 ng/ml BENZODIAZEPINES 100 ng/ml THC 50 ng/ml PHENCYCLIDINE 25 ng/ml OPIATES 300 ng/ml COCAINE 300 ng/ml ALL POSITIVES ARE CONSIDERED PRESUMPTIVE POSITIVE CONFIRMATION WILL BE PERFORMED AT PHYSICIAN REQUEST. ID Date Data Source [id number] 12/27/2020 02:51:[address] [facility] Name Value Range Interpretation Code Description Data Riana rce(s) Supporting Document(s) UA REFLEX TO UA CULTURE [facility] NORMAL: Yellow [facility] CLARITY hazy NORMAL: Clear [facility] Specific gravity of Urine by Test strip 1.015 1.001 - 1.030 [facility] pH 5 5 - 9 [facility] Glucose [Mass/volume] in Urine by Test strip NORM NORMAL: Negat [facility] Bilirubin.total [Presence] in Urine by Test strip NEG NORMAL: Negative [facility] Ketones [Presence] in Urine by Test strip 15 NORMAL: Negative [facility] Protein [Mass/volume] in Urine by Test strip NEG NORMAL: Negat [facility] Nitrite [Presence] in Urine by Test strip NEG NORMAL: Negative [facility] BLOOD 10 NORMAL: Negative [facility] Leukocyte esterase [Presence] in Urine by Test strip 500 MARLENY L: Negative [facility] Urobilinogen [Mass/volume] in Urine by Test strip NOR less padma n 1.0 mg/dL [facility] MICROSCOPIC See Below [facility] WBC 40 - 50 NORMAL: NONE SEEN A [facility] Erythrocytes [#/volume] in Urine by Test strip 0 - 1 NORMAL: NON E SEEN [facility] EPITHELIAL MODERATE NORMAL: NONE SEEN A [facility] Bacteria [Presence] in Urine sediment by Light microscopy 2+ MOD NORMAL: NONE SEEN A [facility] Mucus [Presence] in Urine sediment by Light microscopy 1+ NOR MAL: NONE SEEN [facility] ID Date Data Source [id number] 12/27/2020 12:35:00 AM EDT [facility] Name Value Range Interpretation Code Description Data Riana rce(s) Supporting Document(s) COVID19 Case rprt NOT DETECTED [facility] This lab was ordered by [facility] and reported by [facility]. ID Date Data Source [id number] 12/27/2020 12:57:[address] [facility] NOT DETECTEDNOT DETECTED PROCE DURAL CONTROL VALID KIT LOT # _[id number] 12/27/20.7.LBS. . . KIT EXP DATE _21-19-10 12/27/207.LBS. . . NORMAL RANGE IS NOT DETECTEDThe COVID-19 assay is a rapid molecular in vitro diagnostic testutilizing an isothermal nucleic acid amplification technology for thequalitative detection of nucleic acid from the SARS-CoV-2 viral RNA in directnasal or nasopharyngeal swabs. Testing should be performed within the first 7days of the onset of symptoms.NEGATIVE RESULTS SHOULD BE TREATED PRESUMPTIVE AND, IF INCONSISTENT WITHCLINICAL SIGNS AND SYMPTOMS OR NECESSARY FOR PATIENT MANAGEMENT, SHOULD BETESTED WITH DIFFERENT AUTHORIZED OR CLEARED MOLECULAR TESTS. NEGATIVE RESULTSDO NOT PRECLUDE SARS-CoV-2 INFECTION AND SHOULD NOT BE USED THE SOLE BASISFOR PATIENT MANAGEMENT DECISIONS. Name Value Range Interpretation Code Description Data Riana rce(s) Supporting Document(s) ID Date Data Source [id number] 01/01/2021 08:14:00 AM EDT [facility] [id number] Name Value Range Interpretation Code Description Data Riana rce(s) Supporting Document(s) Bacteria identified in Blood by Culture [facility] NO GROWTH AFTER 5 DAYS ID Date Data Source [id number] 01/02/2021 02:00:[address] [facility] Name Value Range Interpretation Code Description Data Riana rce(s) Supporting Document(s) CULTURE BLOOD [facility] _CULTURE BLOOD_ [place] [address] CLIA# [id number] SEE SCANNED REPORT{ PRELIM ID Date Data Source [id number] 01/02/2021 01:59:[address] [facility] Name Value Range Interpretation Code Description Data Riana rce(s) Supporting Document(s) CULTURE BLOOD [facility] _CULTURE BLOOD_ TEST PERFORM ED AT [facility] [address] [place] [address] IA# [id number] SEE SCANNED REPORT{ PRELIM ID Date Data Source [id number] 12/26/2020 07:22:[address] [facility] Name Value Range Interpretation Code Description Data Riana rce(s) Supporting Document(s) CBC W/AUTOMATED DIFF [facility] COMPLETE BLOOD COUNT Leukocytes [#/volume] in Blood by Automated count 4.4 10^3/uL 4.2 - [address] [facility] Erythrocytes [#/volume] in Blood by Automated count 3.78 10^6/uL 4. 50 - 6.[address] [facility] Hemoglobin [Mass/volume] in Blood 13.4 g/dL 14.0 - 16.[address] [facility] Hematocrit [Volume Fraction] of Blood by Automated count 37.9 % 4 1.0 - 51.[address] [facility] Erythrocyte mean corpuscular volume [Entitic volume] b y Automated count 100.3 fL 80.0 - 94.[address] [facility] Erythrocyte mean corpuscular hemoglobin [Entitic mass] by Automated count 35.4 pg 27.0 - 34.[address] [facility] Erythrocyte mean corpuscular hemoglobin concentration [Mass/volume] by Automated count 35.4 g/dL 31.0 - 36.0 [facility] Erythrocyte distribution width [Ratio] by Automated count 12.9 % 11.5 - 14.8 [facility] Platelets [#/volume] in Blood by Automated count 108 10^3/uL 150 - [address] [facility] Platelet mean volume [Entitic volume] in Blood by Automated count 9.4 fL 7.4 - 10.4 [facility] Neutrophils/100 leukocytes in Blood by Automated count 60.7 % 37. 0 - 80.0 [facility] Lymphocytes/100 leukocytes in Blood by Manual count 25.1 % 25.0 - 40.0 [facility] Monocytes/100 leukocytes in Blood by Automated count 11.2 % 3.0 - 8.[address] [facility] Eosinophils/100 leukocytes in Blood by Automated count 0.7 % 0.0 - 7.0 [facility] Basophils/100 leukocytes in Blood by Automated count 1.8 % 0.0 - 2.0 [facility] %IG 0.5 % 0.0 - 0.0 H [facility] %NRBC 0.0 % 0.0 - 0.0 [facility] al Neutrophils [#/volume] in Blood by Automated count 2.66 10^3/uL 2.00 - 6.90 [facility] Lymphocytes [#/volume] in Blood by Automated count 1.10 10^3/uL 0.60 - 3.40 [facility] Monocytes [#/volume] in Blood by Automated count 0.49 10^3/uL 0.00 - 0.90 [facility] Eosinophils [#/volume] in Blood by Automated count 0.03 10^3/uL 0.00 - 0.70 [facility] Basophils [#/volume] in Blood by Automated count 0.08 10^3/uL 0.00 - 0.20 [facility] #IG 0.02 10^3/uL 0.00 - 0.10 [facility] #NRBC 0.00 10^3/uL 0.00 - 0.00 [facility] MANUAL DIFF NOT INDICATED [facility] RBC MORPH NOT INDICATED [facility] ID Date Data Source [id number] 12/26/2020 07:47:[address] [facility] Name Value Range Interpretation Code Description Data Riana rce(s) Supporting Document(s) TROPONIN T <0.01 NG/ML 0.00 - 0.10 [facility] TROPONIN T0.1 ng/ml Recommended as the c linical threshold value forTroponin T. ID Date Data Source [id number] 12/26/2020 07:58:[address] [facility] Name Value Range Interpretation Code Description Data Riana rce(s) Supporting Document(s) COMPREHENSIVE METABOLIC PANEL [facility] COMPREHENSIVE METABOLIC PANEL Sodium [Moles/volume] in Serum or Plasma 140 mEq/L 134 - 153 [facility] Potassium [Moles/volume] in Serum or Plasma 4.0 mEq/L 3.6 - 5.0 [facility] Chloride [Moles/volume] in Serum or Plasma 96 mEq/L 98 - [address] [facility] Carbon dioxide, total [Moles/volume] in Serum or Plasma 23 MEQ/L 22 - 30 [facility] Glucose [Mass/volume] in Serum or Plasma 73 MG/DL 70 - 99 [facility] BUN 12 MG/DL 7 - 21 [facility] Creatinine [Mass/volume] in Serum or Plasma 0.7 MG/DL 0.7 - 1.5 [facility] BUN/CREAT 17 8 - 27 [facility] Protein [Mass/volume] in Serum or Plasma 7.2 G/DL 6.3 - 8.2 [facility] Albumin [Mass/volume] in Serum or Plasma 4.8 G/DL 3.9 - 5.0 [facility] Globulin [Mass/volume] in Serum by calculation 2.4 GM/DL 2.4 - 3.2 [facility] A/G RATIO 2.0 0.8 - 2.0 [facility] Calcium [Mass/volume] in Serum or Plasma 9.0 MG/DL 8.4 - 10.2 [facility] Bilirubin.total [Mass/volume] in Serum or Plasma 1.2 MG/DL 0.2 - 1.3 [facility] Alkaline phosphatase [Enzymatic activity/volume] in Serum or Plasma 91 U/L 38 - 126 [facility] Aspartate aminotransferase [Enzymatic activity/volume] in Serum or Plasma 186 U/L 5 - [address] [facility] Alanine aminotransferase [Enzymatic activity/volume] in Seru m or Plasma 120 U/L 7 - [address] [facility] Anion gap 3 in Serum or Plasma 21.0 mmol/L 8.0 - 16.[address] [facility] AGE 55 yrs [facility] NON-AA GFR >60 mL/min [facility] AFR AMER GFR >60 mL/min [facility] Male GFR In terprentation 20-49 yrs >60 mL/min Normal 50-59 yrs >56 mL/min Normal 60-69 yrs >49 mL/min Normal 70-79yrs >42 mL/min Normal 80 and above >35 mL/min Normal Female GFR Interpretation 20-39 yrs >60 mL/min Normal 40-49 yrs >58 mL/min Normal 50-59 yrs >51 mL/min Normal 60-69 yrs >45 mL/min Normal 70-79 yrs >39 mL/min Normal 80 and above >32 mL/min Normal ID Date Data Source [id number] 12/26/2020 07:58:[address] [facility] Name Value Range Interpretation Code Description Data Riana rce(s) Supporting Document(s) Magnesium [Mass/volume] in Serum or Plasma 1.5 MG/DL 1.7 - 2.[address] [facility] ID Date Data Source [id number] 12/26/2020 07:58:[address] [facility] Name Value Range Interpretation Code Description Data Riana rce(s) Supporting Document(s) Lipase [Enzymatic activity/volume] in Serum or Plasma 109 U/L 13 - [address] [facility] ID Date Data Source [id number] 12/26/2020 07:58:[address] [facility] Name Value Range Interpretation Code Description Data Riana rce(s) Supporting Document(s) Ethanol [Moles/volume] in Blood 386.0 MG/DL [facility] ALCOHOL % 0.39 % 0.00 - 0.01 [facility] *FOR MEDICAL PURPOSES ONLY * ID Date Data Source [id number] 12/26/2020 08:04:[address] [facility] Name Value Range Interpretation Code Description Data Riana rce(s) Supporting Document(s) Thyrotropin [Units/volume] in Serum or Plasma by Detec tion limit <= 0.05 mIU/L 1.85 uIU/mL 0.47 - 5.01 [facility] ID Date Data Source [id number] 01/04/2020 08:04:00 AM EDT [facility] Name Value Range Interpretation Code Description Data Riana rce(s) Supporting Document(s) Ceruloplasmin [Mass/volume] in Serum or Plasma 22.5 mg/dL 16.0-31.0 [facility] Performed at: RN - [facility] [address] [id number] Mechanical Spreader Operator: Lashell St MD, Phone: [phone] Tissue transglutaminase IgA Ab [Units/volume] in Serum Labor atory test result 0-3 [facility] Negative 0 - 3 Weak Positive 4 - 10 Positive >10 . Tissue Transglutaminase (tTG) has been identified as the endomysial antigen. Studies have demonstr- ated that endomysial IgA antibodies have over 99% specificity for gluten sensitive enteropathy. ID Date Data Source [id number] 01/04/2020 08:04:00 AM EDT [facility] Name Value Range Interpretation Code Description Data Riana rce(s) Supporting Document(s) Thyroxine (T4) free [Mass/volume] in Serum or Plasma 1.13 ng/dL 0.76- 1.46 [facility] Thyrotropin [Units/volume] in Serum or Plasma 1.200 uIU/ML 0.358-3.74 0 [facility] ID Date Data Source [id number] 01/04/2020 08:04:00 AM EDT [facility] Name Value Range Interpretation Code Description Data Riana rce(s) Supporting Document(s) Antinuclear Antibodies Direct Laboratory test result [facility] ID Date Data Source [id number] 01/04/2020 08:04:00 AM EDT [facility] Name Value Range Interpretation Code Description Data Riana rce(s) Supporting Document(s) Hepatitis C virus Ab [Units/volume] in Serum by Immunoassay 0.1 INDEX [facility] Negative Not infected with HCV, unless recent infection is suspected or other evidence exists to indicate HCV infection. ID Date Data Source [id number] 01/04/2020 08:04:00 AM EDT [facility] Name Value Range Interpretation Code Description Data Riana rce(s) Supporting Document(s) Hbvcorediff1 Laboratory test result [facility] Hbvcorediff2 Laboratory test result [facility] ID Date Data Source [id number] 01/04/2020 08:04:00 AM EDT [facility] Name Value Range Interpretation Code Description Data Riana rce(s) Supporting Document(s) Hepatitis B virus surface Ag [Presence] in Serum or Pl asma by Immunoassay Laboratory test result [facility] Hepatitis B virus surface Ab [Presence] in Serum by Im munoassay Laboratory test result [facility] ID Date Data Source [id number] 01/04/2020 08:04:00 AM EDT [facility] Name Value Range Interpretation Code Description Data Riana rce(s) Supporting Document(s) Total Iron Binding Capacity 331 ug/dL 250-450 [facility] Percent Saturation 42.0 % 19.7-50.0 [facility] Iron (Fe) 139 ug/dL 65-175 [facility] ID Date Data Source [id number] 01/04/2020 08:04:00 AM EDT [facility] Name Value Range Interpretation Code Description Data Riana rce(s) Supporting Document(s) Ferritin [Mass/volume] in Serum or Plasma 1358 ng/mL 26-388 [facility] ID Date Data Source [id number] 01/04/2020 08:04:00 AM EDT [facility] Name Value Range Interpretation Code Description Data Riana rce(s) Supporting Document(s) Glucose, Fasting 104 mg/dL 70-100 [facility] Creatinine For GFR 0.83 mg/dL 0.70-1.30 [facility] Blood Urea Nitrogen 14 mg/dL 7-18 [facility] Glomerular Filtration Rate Laboratory test result [facility] <content>Units are mL/min/1.73 m2</content>
<content></content>
<content>Chronic Kidney Disease Staging per NKF:</content>
<content></content>
<content>Stage I & II GFR >=60 Normal to Mildly Decreased</content>
<content>Stage III GFR 30- 59 Moderately Decreased</content>
<content>Stage IV GFR 15-29 Severely Decreased</content>
<content>Stage V GFR <15 Very Little GFR Left</content>
<content>ESRD GFR <15 on BRYOLOGIST</content>
<content></content> Potassium Serum 3.9 meq/L 3.5-5.1 [facility] Sodium Level 137 meq/L 136-145 [facility] Chloride Level 103 meq/L 98-107 [facility] Anion Gap 7 meq/L 8-16 [facility] Carbon Dioxide Level 27 meq/L 21-32 [facility] Calcium Level 9.2 mg/dL 8.5-10.1 [facility] Ast/Sgot 87 U/L 7-37 [facility] Alkaline Phosphatase 79 U/L 45-117 [facility] Bilirubin,Total 2.2 mg/dL 0.2-1.0 [facility] Alt/SGPT 105 U/L 12-78 [facility] Albumin/Globulin Ratio 1.5 [facility] Albumin 4.4 GM/DL 3.2-5.2 [facility] Total Protein 7.4 GM/DL 6.4-8.2 [facility] ID Date Data Source [id number] 01/04/2020 08:04:00 AM EDT [facility] Name Value Range Interpretation Code Description Data Riana rce(s) Supporting Document(s) Hemoglobin 13.8 g/dL 13.5-17.5 [facility] White Blood Count 7.0 10 4.0-10.0 [facility] Red Blood Count 4.02 10 4.30-6.10 [facility] Mean Corpuscular Volume 101.0 fl 80.0-96.0 M [facility] Hematocrit 40.6 % 42.0-52.0 [facility] Mean Corpuscular Hemoglobin 34.3 pg 27.0-33.0 [facility] Mean Corpuscular HGB Conc 34.0 g/dL 32.0-36.5 [facility] Platelet Count, Automated 152 10 150-450 [facility] Red Cell Distribution Width 12.7 % 11.5-14.5 [facility] Cassia % 10.5 % 0.0-5.0 [facility] Lymph % 20.9 % 24.0-44.0 [facility] Neutrophils % 66.8 % 36.0-66.0 [facility] Eos % 0.4 % 0.0-3.0 [facility] Baso % 1.0 % 0.0-1.0 [facility] Neutrophils # 4.7 10 1.5-8.5 [facility] Immature Granulocyte % 0.4 % 0-3.0 [facility] Nucleated Red Blood Cell % 0.0 % 0-0 [facility] Lymph # 1.5 10 1.5-5.0 [facility] Eos # 0.0 10 0.0-0.5 [facility] Cassia # 0.7 10 0.0-0.8 [facility] Baso # 0.1 10 0.0-0.2 [facility] ID Date Data Source [id number] 01/03/2020 12:00:00 AM EDT [facility] [place] [facility] Patient Name: ABDULLAHI [id number] Date of : 1965[place] [address] Date of Exam: 01/03/2020#: Fax: [phone] EXAM: US ABDOMEN, LIMITED SINGLE ORGAN,QUADRANTCLINICAL INFORMATION: Elevated LFT's.Multiple ultrasonographic images of the liver show diffuse increased echoesthroughout the hepatic parenchyma without evidence of a mass or ductaldilatation. The common bile duct measures approximately 3 mm in itsgreatest transverse dimension. Multiple ultrasonographic images of thegallbladder show no focal or diffuse gallbladder wall thickening. Thereare no echogenic foci within the gallbladder lumen, which casts acousticshadows. There is no pericholecystic edema. Images of the pancreaticregion show no gross abnormality.The imaged portion of the right kidney is unremarkable.IMPRESSION:Fatty infiltration of the liver.Accredited by the [employer] in General Ultrasound.BERKLEY Morris/Paul you for referring ABDULLAHI NATION to our office.Electronically Signed - SHELDON BIRD DO 01/03/20 16:51 Name Value Range Interpretation Code Description Data Riana rce(s) Supporting Document(s) ID Date Data Source [id number] 12/20/2019 08:04:00 AM EDT [facility] Name Value Range Interpretation Code Description Data Riana rce(s) Supporting Document(s) Hemoglobin A1c 5.5 % [facility] <content>REFERENCE RANGES:</content><br/ ><content></content>
<content><=5.6% NORMAL</content>
<content>5.7-6.4% SUGGESTS IMPAIRED GLUCOSE METABOLISM/PREDIABETIC</content>
<content>>= 6.5% ABNORMAL</content>
<content></content> Estimated Average Glucose 111 mg/dL 60-110 [facility] ID Date Data Source [id number] 12/20/2019 08:04:00 AM EDT [facility] Name Value Range Interpretation Code Description Data Riana rce(s) Supporting Document(s) Blood Urea Nitrogen 11 mg/dL 7-18 [facility] Glucose, Fasting 107 mg/dL 70-100 [facility] Creatinine For GFR 0.80 mg/dL 0.70-1.30 [facility] Glomerular Filtration Rate Laboratory test result [facility] <content>Units are mL/min/1.73 m2</content>
<content></content>
<content>Chronic Kidney Disease Staging per NKF:</content>
<content></content>
<content>Stage I & II GFR >=60 Normal to Mildly Decreased</content>
<content>Stage III GFR 30- 59 Moderately Decreased</content>
<content>Stage IV GFR 15-29 Severely Decreased</content>
<content>Stage V GFR <15 Very Little GFR Left</content>
<content>ESRD GFR <15 on BRYOLOGIST</content>
<content></content> Sodium Level 136 meq/L 136-145 [facility] Chloride Level 101 meq/L 98-107 [facility] Carbon Dioxide Level 29 meq/L 21-32 [facility] Potassium Serum 4.4 meq/L 3.5-5.1 [facility] Anion Gap 6 meq/L 8-16 [facility] Calcium Level 9.1 mg/dL 8.5-10.1 [facility] Ast/Sgot 365 U/L 7-37 [facility] Alt/SGPT 278 U/L 12-78 [facility] Alkaline Phosphatase 99 U/L 45-117 [facility] Total Protein 7.9 GM/DL 6.4-8.2 [facility] Bilirubin,Total 1.8 mg/dL 0.2-1.0 [facility] Albumin 4.5 GM/DL 3.2-5.2 [facility] Albumin/Globulin Ratio 1.3 [facility] Procedure Social History Code Duration Value Status Description Data Source(s ) Smoking 07/16/2020 12:00:00 AM EDT Patient is a former smoker completed Patient is a former smoker [facility] Vital Signs ID Date Data Source [id number] Name Value Range Interpretation Code Description Data Source(s) Heart rate 78 /min 78 /min [facility] Systolic blood pressure 143 mm[Hg] 143 mm[Hg] M [facility] Diastolic blood pressure 77 mm[Hg] 77 mm[Hg] [facility] Body temperature 97.8 [degF] 97.8 [degF] [facility] Respiratory rate 16 /min 16 /min [facility] ( [facility] Body height 64 [in_i] 64 [in_i] [facility] 5'4" Body weight 137.25 [lb_av] 137.25 [lb_av] [facility] T ([facility] [place] body weight 130 [lb_av] 130 [lb_av] [facility] ([facility] Body mass index (BMI) [Ratio] 23.6 kg/m2 23.6 k g/m2 [facility] Body height 64 [in_i] 64 [in_i] [facility] 5'4" Body weight 140.12 [lb_av] 140.12 [lb_av] [facility] ([facility] [place] body weight 130 [lb_av] 130 [lb_av] [facility] ([facility] Body mass index (BMI) [Ratio] 24.0 kg/m2 24.0 k g/m2 [facility] Systolic blood pressure 156 mm[Hg] 156 mm[Hg] [facility] Diastolic blood pressure 74 mm[Hg] 74 mm[Hg] [facility] Systolic blood pressure 146 mm[Hg] 146 mm[Hg] [facility] recheck Diastolic blood pressure 76 mm[Hg] 76 mm[Hg] [facility] recheck Heart rate 77 /min 77 /min [facility] Body temperature 98.0 [degF] 98.0 [degF] [facility] Respiratory rate 16 /min 16 /min [facility] ( [facility] Systolic blood pressure 152 mm[Hg] 152 mm[Hg] [facility] Diastolic blood pressure 76 mm[Hg] 76 mm[Hg] [facility] Systolic blood pressure 133 mm[Hg] 133 mm[Hg] [facility] ([facility] recheck Diastolic blood pressure 70 mm[Hg] 70 mm[Hg] [facility] recheck Heart rate 75 /min 75 /min [facility] Body temperature 98.2 [degF] 98.2 [degF] [facility] Respiratory rate 16 /min 16 /min [facility] ( [facility] Body height 64 [in_i] 64 [in_i] [facility] 5'4" Body weight 139.25 [lb_av] 139.25 [lb_av] [facility] T ([facility] [place] body weight 130 [lb_av] 130 [lb_av] [facility] ([facility] Body mass index (BMI) [Ratio] 23.9 kg/m2 23.9 k g/m2 [facility] Oxygen saturation in Arterial blood by Pulse oximetry 97 % 97 % [facility] Systolic blood pressure 135 mm[Hg] 135 mm[Hg] M [facility] Heart rate 81 /min 81 /min [facility] Body temperature 99.4 [degF] 99.4 [degF] [facility] Respiratory rate 16 /min 16 /min [facility] ( [facility] [place] body weight 130 [lb_av] 130 [lb_av] [facility] ([facility] Body mass index (BMI) [Ratio] 23.7 kg/m2 23.7 k g/m2 [facility] Diastolic blood pressure 69 mm[Hg] 69 mm[Hg] [facility] Body height 64 [in_i] 64 [in_i] [facility] 5'4" Body weight 138.12 [lb_av] 138.12 [lb_av] [facility] T ([facility]
--- OUTSIDE RECORDS SUMMARY | 2021-01-21 17:44 | CCD ---
Author Author [facility] Organization [facility] Address Unknown Phone Unavailable Care Team Providers Care Trust Mail Clerk Name Role Phone NO, PCP Unavailable Unavailable [facility] Unavailable Unavailable Blade, Shabbir Holly MD Unavailable [...] Unavailable Blade, Shabbir Holly MD Unavailable Unavailable Bldae, Shabbir Holly MD Unavailable Unavailable Blade, Shabbir [...] Shabbir Holly MD Unavailable Unavailable Pleskach, Ramandeep GRAIN ELEVATOR AGENT Unavailable Unavailable Pleskach, Ramandeep GRAIN ELEVATOR AGENT Unavailable Unavailable Pleskach, Ramandeep GRAIN ELEVATOR AGENT Unavailable Unavailable Pleskach, Ramandeep GRAIN ELEVATOR AGENT Unavailable Unavailable Pleskach, Ramandeep GRAIN ELEVATOR AGENT Unavailable Unavailable Pleskach, Ramandeep GRAIN ELEVATOR AGENT Unavailable Unavailable Pleskach, Ramandeep GRAIN ELEVATOR AGENT Unavailable Unavailable Pleskach, Ramandeep GRAIN ELEVATOR AGENT Unavailable Unavailable Pleskach, Ramandeep GRAIN ELEVATOR AGENT Unavailable Unavailable Pleskach, Ramandeep GRAIN ELEVATOR AGENT Unavailable Unavailable Pleskach, Ramandeep GRAIN ELEVATOR AGENT Unavailable Unavailable Pleskach, Ramandeep GRAIN ELEVATOR AGENT Unavailable Unavailable Pleskach, Ramandeep GRAIN ELEVATOR AGENT Unavailable Unavailable Pleskach, Ramandeep GRAIN ELEVATOR AGENT Unavailable Unavailable Pleskach, Ramandeep GRAIN ELEVATOR AGENT Unavailable Unavailable Pleskach, Ramandeep GRAIN ELEVATOR AGENT Unavailable Unavailable Pleskach, Ramandeep GRAIN ELEVATOR AGENT Unavailable Unavailable Pleskach, Ramandeep GRAIN ELEVATOR AGENT Unavailable Unavailable Pleskach, Ramandeep GRAIN ELEVATOR AGENT Unavailable Unavailable Pleskach, Ramandeep GRAIN ELEVATOR AGENT Unavailable Unavailable Pleskach, Ramandeep GRAIN ELEVATOR AGENT Unavailable Unavailable Pleskach, Ramandeep GRAIN ELEVATOR AGENT Unavailable Unavailable Pleskach, Ramandeep GRAIN ELEVATOR AGENT Unavailable Unavailable Pleskach, Ramandeep GRAIN ELEVATOR AGENT Unavailable Unavailable Pleskach, Ramandeep GRAIN ELEVATOR AGENT Unavailable Unavailable Pleskach, Ramandeep GRAIN ELEVATOR AGENT Unavailable Unavailable Pleskach, Ramandeep GRAIN ELEVATOR AGENT Unavailable Unavailable Pleskach, Ramandeep GRAIN ELEVATOR AGENT Unavailable Unavailable Pleskach, Ramandeep GRAIN ELEVATOR AGENT Unavailable Unavailable Pleskach, Ramandeep GRAIN ELEVATOR AGENT Unavailable Unavailable Pleskach, Ramandeep GRAIN ELEVATOR AGENT Unavailable Unavailable Pleskach, Ramandeep GRAIN ELEVATOR AGENT Unavailable Unavailable Pleskach, Ramandeep GRAIN ELEVATOR AGENT Unavailable Unavailable Pleskach, Ramandeep GRAIN ELEVATOR AGENT Unavailable Unavailable Pleskach, Ramandeep GRAIN ELEVATOR AGENT Unavailable Unavailable Pleskach, Ramandeep GRAIN ELEVATOR AGENT Unavailable Unavailable Pleskach, Ramandeep GRAIN ELEVATOR AGENT Unavailable Unavailable Pleskach, Ramandeep GRAIN ELEVATOR AGENT Unavailable Unavailable Pleskach, Ramandeep GRAIN ELEVATOR AGENT Unavailable Unavailable Pleskach, Ramandeep GRAIN ELEVATOR AGENT Unavailable Unavailable Pleskach, Ramandeep GRAIN ELEVATOR AGENT Unavailable Unavailable Pleskach, Ramandeep GRAIN ELEVATOR AGENT Unavailable Unavailable SILVA, L MARLENY MD Unavailable [...] is protected by Article 27-F of the [facility] Public Health law. If you continue you may have access to information: Regarding HIV / AIDS; Provided by facilities licensed or operated by the [facility] Office of Mental Health; or Provided by the [facility] Office for People With Developmental Disabilities. If such information is present, then the following [facility] mandated warning applies: This information has been [...] law may result in a fine or senior living sentence or both. A general authorization for the release of medical or other information is NOT sufficient authorization for further disc losure. Family History Family Member Name Family Member Gender Family Member Status Date o f Status Description Data Source(s) Unknown Unknown Problem [facility] ([facility] Encounters Encounter Providers Location Date Indications Data Source(s ) Outpatient Attender: [facility] 12/26/2020 11:5 0:00 PM EDT [facility] Emergency Attender: MARLENY ASCENCIO MDConsultant: PCP NO 12/26/2020 06:32:00 PM EDT - 12/27/2020 10:49:00 AM EDT [facility]. Outpatient Attender: Elayne Torres MD Main Office 07/16/2020 01:45:0 0 PM EDT [facility] ([facility] Outpatient Attender: Ramandeep Milner [facility] Main Office 04/10/2020 0 1:45:00 PM EST [facility] ([facility] Outpatient Attender: Ramandeep Annia [facility] Main Office 01/09/2020 0 1:45:00 PM EDT [facility] ([facility] Outpatient Attender: Ramandeep Annia [facility] Main Office 12/26/2019 0 2:00:00 PM EDT [facility] ([facility] Immunizations Vaccine Date Status Description Data Source(s) COVID-19 VACCINE Moderna 07/29/2020 12:00:00 AM EDT completed [facility] Vaccine Series Complete: YESThis Data wa s Submitted to [facility] Via MDCapsule. Moderna Sars-(Covid-19) vaccine, mRNA, LNP-S, PF, 100 [...] type / Coverage type Policy ID Covered alliance party ID Covered alliance party's relationship to camacho Policy Camacho Plan Information BCBS [facility] [id number] SP [id number] BS Of On License Of [facility] ([facility]) VYA2 [id number] Self [id number] [facility] 302/307 [id number] SP [id number] BS Of On License Of [facility] ([facility]) VYA2 [id number] Self [id number] SELF PAY ONLY [id number] SP [id number] BS Of On License Of [facility] ([facility]) VYA2 [id number] Self [id number] BS Of On License Of [facility] ([facility]) VYA2 [id number] Self [id number] [place]BS [place] 302/307 [id number] SP [id number] [place]BS [place] [employer] 302/307 [id number] SP [id number] [employer] BCBS B [id number] S [id number] [place]BS [place] 302/307 [id number] SP [id number] Problems, Conditions, and Diagnoses Code Display Name Description Problem Type Effective Dates Data Source(s) S32914 CONTACT WITH AND SUSPECTED EXPOSURE TO C OVID-19 CONTACT WITH AND SUSPECTED EXPOSURE TO COVID-19 Diagnosis 12/26/2020 06:32:00 PM EDT [facility] Y908 Blood alcohol level of 240 mg/100 ml or more Blood alcohol level of 240 mg/100 ml or more Diagnosis 12/26/2020 06:32:00 PM EDT [facility] J189 Pneumonia, unspecified organism Pneumonia, unspecified organism Diagnosis 12/26/2020 06:32:00 PM EDT [facility] I10 Essential (primary) hypertension Essential (primary) h ypertension Diagnosis 12/26/2020 06:32:00 PM EDT [facility] E119 Type 2 diabetes mellitus without complic ations Type 2 diabetes mellitus without complications Diagnosis 12/26/2020 06:32:[address] [facility] B39048 Alcohol use, unspecified with intoxicati on, uncomplicated Alcohol use, unspecified with intoxication, uncomplicated Diagnosis 06:32:00 PM EDT [facility] Surgeries/Procedures Procedure Description Date Indications Data Source(s) Diabetic Foot Exam 12/26/2019 12:00:00 AM EDT [facility] ([facility] done by Day Results ID Date Data Source [id number] 12/26/2020 06:32:00 PM EDT [facility] 1 OrderSheet [facility] Emergency Department [address] [place] [address] Phone #: ext- [phone] 12/26/2020 18:31 Patient: LAURA NATION Sex: M : 1965 Age: 55yWEIGHT:63.5 kg (S) HEIGHT:67 inches (S) BMI:21.9ALLERGIES: NoneCHIEF COMPLAINT: intoxicatedDIAGNOSIS: Alcohol intoxication, PneumoniaLAB ORDERSOrder Description Priority Entered Acknowledged [facility]ed[facility] w Diff STAT 19:05 12/26/2020 19:33 Marleny [...] as Marleny Ascencio MD; Grant Resendizfined by [facility]) R.N.(12/26/20) (First Test)(Hospitalized) (Not) (NotResident inCongregate CareSetting) (NotEmployed inHealthcare Setting)Blood Culture STAT 22:29 12/26/2020 Ack'd: 23:39 Soumya 00:54 12/27/2020q10m X2 (Marleny Mcwilliams MD; Grant Maravilla 2 OrderSheet [facility] Emergency Department [address] [place] [address] Phone #: ext- [phone] 12/26/2020 18:31 Patient: LAURA NATION Sex: M [...] IM 10mg 18:50 12/26/2020 18:50 Delia Duncan(NOW) Delai Duncan RLuke.; R.N. Verbal order per; Marleny [...] 22:36 Soumya 23:40 Soumyashabbir mcallister 3 OrderSheet [facility] Emergency Department [address] [place] [address] Phone #: ext- [phone] 12/26/2020 18:31 Patient: [...] rce(s) Supporting Document(s) ID Date Data Source [id number] 12/26/2020 06:32:00 PM EDT [facility] 1 Medication Reconciliation Report [facility] Emergency Department [address] [place] [address] Phone #: ext- [phone] 12/26/2020 18:31 Patient: [...] 6 tablet. Refills: 0. Substitution permitted.Pharmacy - [id number] - [id number] [facility] ; [place] [address]. FaxNumber: . -- Marleny Ascencio MD Name Value Range Interpretation Code Description Data Riana rce(s) Supporting Document(s) ID Date Data Source [id number] 12/26/2020 06:32:00 PM EDT [facility] 1 Medication Administration Record [facility] Department [address] [place] [address] Phone #: ext- [phone] 12/26/2020 18:31 Patient: [...] IV NS 1000 mL Bolus : Bolus 116612:02 12/26/2020 Dose: IV Fluids mL (X1)Herbert franks RN Rate: 1000 mL/hr---- Bolus: 1000 mLStop Dispensed: 1000 mL bag22:45 12/26/2020 Site: #1 right forearmSoumya Maravilla R.N.Start MAGNESIUM SULFATE [IVPB] Magnesium Sulfate 2 g IVPB X120:48 12/26/2020 Dose: 2 gm IVPB dose: 2 gm (HIGH Imani Maravilla RN Rate: 2 gm/hr MEDICATION, X1)---- Dispensed: 50 mL bagStop Site: #1 right quzsvdi90:48 12/26/2020Soumya Maravilla R.N.Start AZITHROMYCIN [IVPB] Azithromycin IVPB 500 mg X100:46 12/27/2020 Dose: 500 mg IVPB Dose: 500 mg with DextroseSoumya Maravilla R.N. Rate: 250 mL/hr Intravenous 250 mL (NOW x1)---- Dispensed: 250 mL bagStop Site: #1 right :49 1RDelia osborn R.N.Start ROCEPHIN (1GM/50ML) [IVPB] Rocephin (1gm/50mL) IVPB 393852:39 12/26/2020 (CEFTRIAXONE SODIUM) mg with Dextrose 50 ml spike Sha Maravilla R.N. Dose: 1 gm IVPB (D5W)---- Rate: 100 mL/hrStop Dispensed: 50 mL bag00:10 12/27/2020 Site: #1 right forearmSoumya Maravilla R.N. Name Value Range Interpretation Code Description Data Riana rce(s) Supporting Document(s) ID Date Data Source [id number] 12/26/2020 06:32:00 PM EDT [facility] 1 General Instructions [facility] Department [address] [place] [address] Phone #: ext- [phone] 12/26/2020 18:31 Patient: [...] 6 tablet. Refills: 0. Substitution permitted.Pharmacy - [id number] - [id number] [place] [address]. FaxNumber: .Follow-up:Follow up with your doctor even [...] are some rosario facts: 2 General Instructions [facility] Emergency Department [address] [place] [address] Phone #: ext- [phone] 12/26/2020 18:31 Patient: LAURA NATION Sex: M [...] depression Poor judgment Confusion 3 General Instructions [facility] [place] [address] Phone #: ext- [phone] 12/26/2020 18:31 Patient: LAURA NATION Sex: M [...] harder to fight off 4 General Instructions [facility] Department [address] [place] [address] Phone #: ext- [phone] 12/26/2020 18:31 Patient: LAURA NATION Sex: M [...] inpatient detox program. Or 5 General Instructions [facility] Emergency Department [address] [place] [address] Phone #: ext- [phone] 12/26/2020 18:31 Patient: [...] www.aa.org. [employer] gives support to families. Call 902-565-7250, or go to www.al-anon.org. National [place] on Alcoholism and Drug Dependence (NCADD) has helpful resources. NCADD can be reached at 993-200-0643 and www.ncadd.org.Call 905Ball 352 if any of these occur: Trouble breathing [...] gets worse Repeated vomiting 6 General Instructions [facility] Department [address] [place] [address] Phone #: ext- [phone] 12/26/2020 18:31 Patient: LAURA NATION Sex: Tala : 1965 Age: 55y [id number] Chloe + Isabel. [address] [place] [address]. All rights reserved. This information is not [...] first week of treatment. 7 General Instructions [facility] Emergency Department [address] [place], [place] [address] Phone #: ext- [phone] 12/26/2020 18:31 Patient: LAURA NATION Sex: M : 1965 [facility] these guidelines when caring for yourself at [...] your home. Prevent lung infections. Ask your [facility] provider about the flu and pneumonia vaccines. Take steps to prevent colds and other lung infections. Practice correct handwashing. Wash your hands often with soap and water. Use hand facility practice specialist when you can't wash your hands. Stay [...] to be sure the 8 General Instructions [facility] Department [address] [place] [address] Phone #: ext- [phone] 12/26/2020 18:31 Patient: [...] about whichpneumococcal vaccine is best for you.Call [phone] any of these occur: Unable to speak [...] mouth that gets worse 9 General Instructions [facility] Department [address] [place] [address] Phone #: ext- [phone] 12/26/2020 18:31 Patient: LAURA NATION Sex: M : [birth year] Age: 55y Sinus pain, headache, or a stiff neck Chest pain with breathing or coughing Symptoms that get worse or not improving Chloe + Isabel. [address] [place] [address]. All rights reserved. This information is not [...] rce(s) Supporting Document(s) ID Date Data Source [id number] 12/26/2020 06:32:00 PM EDT [facility] 1 Clinical Report - Nurses [facility] Department [address] [place] [address] Phone #: ext- [phone] 12/26/2020 18:31 Patient: LAURA NATION Sex: M : 1965 Age: 55yTRIAGEArrived by EMS. Historian: patient. Unaccompanied. ( ems was called for welfare check and pt foundintoxicated and covered in feces unable to take care of hisself).Acuity: LEVEL 4.Chief Complaint: (intoxicated).This started today.Treatment PRODUCTION WORKER:None.SEPSIS SCREEN: SIRS SCREEN NEGATIVE. SEPSIS SCREEN NEGATIVE. [...] the [place] 2 Clinical Report - Nurses [facility] Department [address] [place] [address] Phone #: ext- [phone] 12/26/2020 18:31 Patient: LAURA NATION Sex: M [...] verified and 3 Clinical Report - Nurses [facility] Department [address] [place] [address] Phone #: ext- [phone] 12/26/2020 18:31 Patient: LAURA NATION Sex: M [...] 50 mL; 4 Clinical Report - Nurses [facility] [address] [place] [address] Phone #: ext- [phone] 12/26/2020 18:31 Patient: LAURA NATION Sex: M [...] give information tohis Mother Lois Torres at [phone] (cell) Lois was contacted by phone and She statesshakira Sanchez's sister (who is his other next of kin) Yajaira maxwell at [phone] is unavailable as she has towork. Mother updated as to findings of tests and states that she will come to get him, but is interested to 5 Clinical Report - Nurses [facility] [address] [place] [address] Phone #: ext- [phone] 12/26/2020 18:31 Patient: LAURA NATION Sex: M : 1965 Age: 55y speak to the home health care social worker. She states that she is coming from [place] and that it takes 3 hrs to [...] when Mother calls or is here to package pick up pt.). --06:52 12/27/20 Soumya Maravilla R.N. ( continue to wait for ride to package pick up pt, ride called and stated it would [...] Patient verbalized understanding. Written instructions provided in Belgian. The patient was discharged home and accompanied [...] rce(s) Supporting Document(s) ID Date Data Source [id number] 12/26/2020 06:32:00 PM EDT [facility] 1 Clinical Report - Physicians/Mid Levels [facility] Department [address] [place] [address] Phone #: ext- [phone] 12/26/2020 18:31 Patient: LAURA NATION Sex: M [...] Allergies: 2 Clinical Report - Physicians/Mid Levels [facility] Department [address] [place] [address] Phone #: ext- [phone] 12/26/2020 18:31 Patient: LAURA NATION Sex: M [...] _[id number] 12/27/20.LBS. . . KIT EXP DATE _07-82-80 12/27/20.LBS. . . NORMAL RANGE IS NOT [...] Status 3 Clinical Report - Physicians/Mid Levels [facility] Department [address] [place] [address] Phone #: ext- [phone] 12/26/2020 18:31 Patient: LAURA NATION Sex: M : 1965 Age: 55yTRANSPORTATION: S IV? O2? Oxygen?(No) Room: ED Exam CT [place] [address] PHONE: [phone] FAX: [phone] Name .................. : RIOS SANCHEZ Acct Number.................. : [id number] ROOM. ................. : [facility] MR Number ................... : [id number] Stay type ............. : E/R Discharge Date......... ... : Admit Date ......... : 12/26/20 Admit Phys .................... : COONEYNORM Date of ....... : 1965 Family Phys ................... : NO PCP Phone .................. : Age ................................ : 55 Film# .................. .:[id number] Sex ................................. : M Unsigned transcriptions are preliminary reports and do not represent a medical or legal document CT HEAD W/O CONTRAST [id number] COMPLETE:12/26/20 20:50 AML 25857 Reason(s): Altered Mental Status CT BRAIN WITHOUT [...] results 4 Clinical Report - Physicians/Mid Levels [facility] [address] [place] [address] Phone #: ext- [phone] 12/26/2020 18:31 Patient: [...] Male GFR Interprentation 20-49 yrs >60 mL/min Mrkxfu53-13 yrs >56 mL/min Normal 60-69 yrs >49 mL/min Normal 70-79yrs>42 mL/min Normal 80 and above >35 mL/min Normal Female GFR 5 Clinical Report - Physicians/Mid Levels [facility] [address] [place] [address] Phone #: ext- [phone] 12/26/2020 18:31 Patient: LAURA NATION Sex: M : 1965 Age: 55yInterpretation 20-39 yrs >60 mL/min Normal 40-49 yrs >58 mL/minNormal 50-59 yrs >51 mL/min Normal 60-69 yrs >45 mL/min Qnfdjz11-55 yrs >39 mL/min Normal 80 and above >32 mL/min NormalTroponin-T: (RISHABH: 12/26/2020 19:14) ( [facility] 12/26/2020 19:47) Final results Test Result Flag Units (Reference) TROPONIN T <0.01 NG/ML (0.00 - 0.10) TROPONIN T0.1 ng/ml Recommended as the clinical threshold value forTroponin T.TSH: (RISHABH: 12/26/2020 19:14) ( [facility] 12/26/2020 20:04) Final results Test Result Flag Units (Reference) TSH 1.85 uIU/mL (0.47 - 5.01)Magnesium: (RISHABH: 12/26/2020 19:14) ( [facility] 12/26/2020 19:58) Final results Test Result Flag Units (Reference) MAGNESIUM 1.5 L MG/DL (1.7 - 2.2)Lipase: (RISHABH: 12/26/2020 19:14) ( [facility] 12/26/2020 19:58) Final results Test Result Flag Units (Reference) LIPASE 109 H U/L (13 - 60)Drug Screen-Urine: (RISHABH: 12/27/2020 02:40) ( [facility] 12/27/2020 03:07) Final results Test Result [...] TO UA CULTURE: (RISHABH: 12/27/2020 02:40) ( [facility] 12/27/2020 02:52) Final results Test Result Flag Units (Reference) UA REFLEX TO UA CULTURE URINALYSIS SOURCE R COLOR yellow (NORMAL: Yello CLARITY hazy (NORMAL: Clear SPEC GRAVITY 1.015 (1.001 - 1.030 pH 5 (5 - 9) GLUCOSE NORM (NORMAL: Negat BILIRUBIN NEG (NORMAL: Negat 6 Clinical Report - Physicians/Mid Levels [facility] Department [address] [place] [address] Phone #: ext- [phone] 12/26/2020 18:31 -- [...] 1+ (NORMAL: NONEETOH: (RISHABH: 12/26/2020 19:14) ( [facility] 12/26/2020 19:58) Final results Test Result Flag Units (Reference) ALCOHOL 386.0 MG/DL ALCOHOL % 0.39 HH % (0.00 - 0.01) *FOR MEDICAL PURPOSES ONLY*Chest Portable 1 View: (RISHABH: 12/26/2020 19:05) ( [facility] 12/26/2020 23:08) In [place]ankinCHEST PORTABLEReason(s): CongestionTRANSPORTATION: P IV? O2? Oxygen?(No) Room: ED [place] [address] PHONE: [phone] FAX: [phone] Name .................. : RIOS SANCHEZ Acct Number.................. : [id number] ROOM. ................. : [facility] MR Number ................... : [id number] Stay type ............. : E/R Discharge Date......... ... : Admit Date ......... : 12/26/20 Admit Phys .................... : COONEYNORM Date of ....... : 1965 Family Phys ................... : NO PCP Phone .................. : Age ................................ : 55 Film# .................. .:[id number] Sex ................................. : M Un signed transcriptions are preliminary reports and do not represent a medical or legal document CHEST PORTABLE [id number] COMPLETE:12/26/20 20:08 [facility] [address]991 Reason(s): Congestion FRONTAL AND LATERAL CHEST 2 VIEWS INDICATION: Congestion COMPARISON: None FINDINGS: Mediastinal and hilar structures are normal. Cardiac silhouette is unremarkable. Patchy opacities are seen in both lower lobes which could be atelectasis or pneumonia. Upper lobes are clear. No pleural effusions or pneumothorax. Skeletal structures appear intact. IMPRESSION: Bilateral lower lobe atelectasis versus pneumonia. 7 Clinical Report - Physicians/Mid Levels [facility] Emergency Department [address] [place] [address] Phone #: ext- [phone] 12/26/2020 18:31 ---- Patient: LAURA NATION Sex: [...] 18 years of age. Herphone number is [phone] cell, land line. At 03:00 pt awoke [...] has occurred in the ED. She willcome package pick up pt. Critical care performed. Time is exclusive [...] intoxication. 8 Clinical Report - Physicians/Mid Levels [facility] Department [address] [place] [address] Phone #: ext- [phone] 12/26/2020 18:31 Patient: LAURA NATION Sex: M [...] tablet. Refills: 0. Substitution permitted. Pharmacy - [id number] - [id number] [facility] ; [place] [address]. . Follow-up: Follow up with your doctor even if well. Call for an appointment. Reason for referral: evaluation. Summary of care provided to patient via paper. Understanding of the discharge instructions verbalized by patient.(Electronically signed by Marleny Ascencio MD 12/28/2020 23:52) Name Value Range Interpretation Code Description Data Riana rce(s) Supporting Document(s) ID Date Data Source [id number] 12/28/2020 10:57:00 [place] [address] PHONE: [phone] FAX: [phone] Name ..............: RIOS SANCHEZ Acct Number ...........................: [id number] ROOM. ............: [facility] MR Number ............................: [id number] Stay type.........: E/R Discharge Date...............:12/27/20 Admit Date .....: 12/26/20 Admit Phys .............................: ........................COONEYNORM Date of ..: 1965 Family Phys ...........................: NO PCP Phone..............: Age.................................:55 Film# ...............:[id number] Sex.................................:M Unsigned transcriptions are preliminary reports and do not represent a medical or legal document EKG 11205 COMPLETE:12/27/20 05:16 AJ 87384 Please See Scanned Results. Name Value Range Interpretation Code Description Data Riana rce(s) Supporting Document(s) ID Date Data Source [id number] 12/27/2020 11:48:00 AM EDT [facility] [address] [place] [address] PHONE: [phone] FAX: [phone] Name .................. : RIOS SANCHEZ Acct Number.................. : [id number] ROOM. ................. : [address] Number ................... : [id number] Stay type ............. : E/R Discharge Date......... ... : Admit Date ......... : 12/26/20 Admit Phys .................... : COONEYNORM Date of ....... : 1965 Family Phys ................... : NO PCP Phone .................. : Age ................................ : 55 Film# .................. .:[id number] Sex ................................. : M Unsigned transcriptions are preliminary reports and do not represent a medical or legal document CHEST PORTABLE [id number] COMPLETE:12/26/20 20:08 [facility] [address] Reason(s): Congestion FRONTAL AND LATERAL CHEST 2 [...] rce(s) Supporting Document(s) ID Date Data Source [id number] 12/27/2020 11:48:00 [place] [address] PHONE: [phone] FAX: [phone] Name .................. : RIOS SANCHEZ Acct Number.................. : [id number] ROOM. ................. : [address] Number ................... : [id number] Stay type ............. : E/R Discharge Date......... ... : Admit Date ......... : 12/26/20 Admit Phys .................... : COONEYNORM Date of ....... : 1965 Family Phys ................... : NO PCP Phone .................. : Age ................................ : 55 Film# .................. .:[id number] Sex ................................. : M Unsigned transcriptions are preliminary reports and do not represent a medical or legal document CT HEAD W/O CONTRAST 19082 COMPLETE:12/26/20 20:50 AML [id number] Reason(s): Altered Mental Status CT BRAIN WITHOUT [...] 22:59, Dictation Date: Page 1 of 2 [place] [address] PHONE: [phone] FAX: [phone] Name .................. : RIOS SANCHEZ Acct Number.................. : [id number] ROOM. ................. : [place]- [address] Number ................... : [id number] Stay type ............. : E/R Discharge Date......... ... : Admit Date ......... : 12/26/20 Admit Phys .................... : COONEYNORM Date of ....... : 1965 Family Phys ................... : NO PCP Phone .................. : Age ................................ : 55 Film# .................. .:[id number] Sex ................................. : M Unsigned transcriptions are preliminary reports and do not represent a medical or legal document CT HEAD W/O CONTRAST 25508 COMPLETE:12/26/20 20:50 AML [id number] Reason(s): Altered Mental Status Copy for: EMERGENCY DEPT via modem Copy for: 710 MED REC DISCHARGED Page 2 of 2 Name Value Range Interpretation Code Description Data Riana rce(s) Supporting Document(s) ID Date Data Source [id number] 12/31/2020 11:17:00 AM EDT [facility] Name Value Range Interpretation Code Description Data Riana rce(s) Supporting Document(s) CULT[facility]INE [facility] _CULTURE URINE_$$[id number]$$[id number]$$027490$$654907$$831381$$273029$$144340$$515801$$444084$$ 746352$$908900$$491370$$646157$$031917$$524905$$752203$$080471$$032636$$273362$$ 627224$$612569$$143638$$109844$$634989$$886994$$478171$$485779 -- Continued on next page --Patient: RIOS SANCHEZ Order: [id number] Page 2Culture: CULTURE URINE Status: Final ==== -- Continued on next page --Patient: RIOS SANCHEZ Order: [id number] Page 2Culture: CULTURE URINE Status: Prelim =====$$[id number]$$[id number] DATE/TIME: 12/31/2020 11:06Culture: CULTURE URINE Status: FinalUrine Culture,Comprehensive: [id number] urogenital flora10,000-25,000 colony forming units per mL Previous result entered on 12/29/2020 06:45 ET No growth after 18-24 hours.P1 Test performed by: [facility] #: [id number] [address] [place] [address] [id number] [facility] [id number] Director : Maciel Martinez MD NPI #:Back End Developer : 12/30/20.0617.XMT.SENT REF 12/31/20.1117.XMT.SENT REF ID Date Data Source [id number] 12/27/2020 03:06:00 AM EDT [facility] Name Value Range Interpretation Code Description Data Riana rce(s) Supporting Document(s) DRUG SCREEN URINE [facility] URINE DRUG SCREEN Amphetamine [Presence] in Urine by Screen method NEGATIVE NORMAL: N EGATIVE [facility] BARBITURATES NEGATIVE NORMAL: NEGATIVE [facility] BENZO NEGATIVE NORMAL: NEGATIVE [facility] COCAINE NEGATIVE NORMAL: NEGATIVE [facility] Tetrahydrocannabinol [Presence] in Urine NEGATIVE NORMAL: NEGATIVE [facility] OPIATES NEGATIVE NORMAL: NEGATIVE [facility] Phencyclidine [Presence] in Urine by Screen method NEGATIVE NOR MAL: NEGATIVE [facility] \\BLDo\\URINE DRUG SCR EEN INTERPRETATION\\BLDx\\ THE CUTOFFF LEVELS FOR DETECTION ARE FOLLOWS: AMPHETAMINES 1000 ng/ml BARBITUARATES 200 ng/ml BENZODIAZEPINES 100 ng/ml THC 50 ng/ml PHENCYCLIDINE 25 ng/ml OPIATES 300 ng/ml COCAINE 300 ng/ml ALL POSITIVES ARE CONSIDERED PRESUMPTIVE POSITIVE CONFIRMATION WILL BE PERFORMED AT PHYSICIAN REQUEST. ID Date Data Source [id number] 12/27/2020 02:51:00 AM EDT [facility] Name Value Range Interpretation Code Description Data Riana rce(s) Supporting Document(s) UA REFLEX TO UA CULTURE [facility]AL[facility] CLARITY hazy NORMAL: [facility] Specific gravity of Urine by Test strip 1.015 1.001 - 1.030 [facility] pH 5 5 - 9 [facility] al Glucose [Mass/volume] in Urine by Test strip NORM NORMAL: Negat [facility] Bilirubin.total [Presence] in Urine by Test strip NEG NORMAL: Negative [facility] Ketones [Presence] in Urine by Test strip 15 NORMAL: Negative [facility] Protein [Mass/volume] in Urine by Test strip NEG NORMAL: Negat [facility] Nitrite [Presence] in Urine by Test strip NEG NORMAL: Negative [facility] BLOOD 10 NORMAL: Negative [facility] Leukocyte esterase [Presence] in Urine by Test strip 500 MARLENY L: Negative [facility] Urobilinogen [Mass/volume] in Urine by Test strip NOR less padma n 1.0 mg/dL [facility] MICROSCOPIC See Below [facility] ital WBC 40 - 50 NORMAL: NONE SEEN A [facility] Erythrocytes [#/volume] in Urine by Test strip 0 - 1 NORMAL: NON E SEEN [facility] EPITHELIAL MODERATE NORMAL: NONE SEEN A [facility] Bacteria [Presence] in Urine sediment by Light microscopy 2+ MOD NORMAL: NONE SEEN A [facility] Mucus [Presence] in Urine sediment by Light microscopy 1+ NOR MAL: NONE SEEN [facility] ID Date Data Source [id number] 12/27/2020 12:35:00 AM EDT [facility] Name Value Range Interpretation Code Description Data Riana rce(s) Supporting Document(s) COVID19 Case rprt NOT DETECTED [facility] This lab was ordered by [facility] and reported by [facility]. ID Date Data Source [id number] 12/27/2020 12:57:00 AM EDT [facility] NOT DETECTEDNOT DETECTED PROCE DURAL CONTROL VALID KIT LOT # _[id number] 12/27/20.7.LBS. . . KIT EXP DATE _77-19-52 12/27/207.LBS. . . NORMAL RANGE IS NOT [...] rce(s) Supporting Document(s) ID Date Data Source [id number] 01/01/2021 08:14:00 AM EDT [facility] [address] Name Value Range Interpretation Code Description Data Riana rce(s) Supporting Document(s) Bacteria identified in Blood by Culture [facility] NO GROWTH AFTER 5 DAYS ID Date Data Source [id number] 01/02/2021 02:00:00 PM EDT [facility] Name Value Range Interpretation Code Description Data Riana rce(s) Supporting Document(s) CULTURE BLOOD [facility] _CULTURE BLOOD_ [place] [address] CLIA# [id number] SEE SCANNED REPORT{ PRELIM ID Date Data Source [id number] 01/02/2021 01:59:00 PM EDT [facility] Name Value Range Interpretation Code Description Data Riana rce(s) Supporting Document(s) CULTURE BLOOD [facility] _CULTURE BLOOD_ TEST PERFORM ED AT [facility] [address] [place] [address] IA# [id number] SEE SCANNED REPORT{ PRELIM ID Date Data Source [id number] 12/26/2020 07:22:00 PM EDT [facility] Name Value Range Interpretation Code Description Data Riana rce(s) Supporting Document(s) CBC W/AUTOMATED DIFF [facility] COMPLETE BLOOD COUNT Leukocytes [#/volume] in Blood by Automated count 4.4 10^3/uL 4.2 - 1 1.0 [facility] Erythrocytes [#/volume] in Blood by Automated count 3.78 10^6/uL 4. 50 - 6.30 L [facility] Hemoglobin [Mass/volume] in Blood 13.4 g/dL 14.0 - 16.0 L [facility] Hematocrit [Volume Fraction] of Blood by Automated count 37.9 % 4 1.0 - 51.0 L [facility] Erythrocyte mean corpuscular volume [Entitic volume] b y Automated count 100.3 fL 80.0 - 94.0 H [facility] Erythrocyte mean corpuscular hemoglobin [Entitic mass] by Automated count 35.4 pg 27.0 - 34.0 H [facility] Erythrocyte mean corpuscular hemoglobin concentration [Mass/volume] by Automated count 35.4 g/dL 31.0 - 36.0 [facility] Erythrocyte distribution width [Ratio] by Automated count 12.9 % 11.5 - 14.8 [facility] Platelets [#/volume] in Blood by Automated count 108 10^3/uL 150 - 45 0 L [facility] Platelet mean volume [Entitic volume] in Blood by Automated count 9.4 fL 7.4 - 10.4 [facility] Neutrophils/100 leukocytes in Blood by Automated count 60.7 % 37. 0 - 80.0 [facility] Lymphocytes/100 leukocytes in Blood by Manual count 25.1 % 25.0 - 40.0 [facility] Monocytes/100 leukocytes in Blood by Automated count 11.2 % 3.0 - 8.0 H [facility] Eosinophils/100 leukocytes in Blood by Automated count 0.7 % 0.0 - 7.0 [facility] Basophils/100 leukocytes in Blood by Automated count 1.8 % 0.0 - 2.0 [facility] %IG 0.5 % 0.0 - 0.0 [facility] %NRBC 0.0 % 0.0 - 0.0 [facility] al Neutrophils [#/volume] in Blood by Automated count 2.66 10^3/uL 2.00 - 6.90 [facility] Lymphocytes [#/volume] in Blood by Automated count 1.10 10^3/uL 0.60 - 3.40 [facility] Monocytes [#/volume] in Blood by Automated count 0.49 10^3/uL 0.00 - 0.90 [facility] Eosinophils [#/volume] in Blood by Automated count 0.03 10^3/uL 0.00 - 0.70 [facility] Basophils [#/volume] in Blood by Automated count 0.08 10^3/uL 0.00 - 0.20 [facility] #IG 0.02 10^3/uL 0.00 - 0.10 [facility] #NRBC 0.00 10^3/uL 0.00 - 0.00 [facility] MANUAL DIFF NOT INDICATED [facility] RBC MORPH NOT INDICATED [facility] ID Date Data Source [id number] 12/26/2020 07:47:00 PM EDT [facility] Name Value Range Interpretation Code Description Data Riana rce(s) Supporting Document(s) TROPONIN T <0.01 NG/ML 0.00 - 0.10 [facility] TROPONIN T0.1 ng/ml Recommended as the c linical threshold value forTroponin T. ID Date Data Source [id number] 12/26/2020 07:58:00 PM EDT [facility] Name Value Range Interpretation Code Description Data Riana rce(s) Supporting Document(s) COMPREHENSIVE METABOLIC PANEL [facility] COMPREHENSIVE METABOLIC PANEL Sodium [Moles/volume] in Serum or Plasma 140 mEq/L 134 - 153 [facility] Potassium [Moles/volume] in Serum or Plasma 4.0 mEq/L 3.6 - 5.0 [facility] Chloride [Moles/volume] in Serum or Plasma 96 mEq/L 98 - 107 L [facility] Carbon dioxide, total [Moles/volume] in Serum or Plasma 23 MEQ/L 22 - 30 [facility] Glucose [Mass/volume] in Serum or Plasma 73 MG/DL 70 - 99 [facility] BUN 12 MG/DL 7 - 21 [facility] Creatinine [Mass/volume] in Serum or Plasma 0.7 MG/DL 0.7 - 1.5 [facility] BUN/CREAT 17 8 - 27 [facility] Protein [Mass/volume] in Serum or Plasma 7.2 G/DL 6.3 - 8.2 [facility] Albumin [Mass/volume] in Serum or Plasma 4.8 G/DL 3.9 - 5.0 [facility] Globulin [Mass/volume] in Serum by calculation 2.4 GM/DL 2.4 - 3.2 [facility] A/G RATIO 2.0 0.8 - 2.0 [facility] Calcium [Mass/volume] in Serum or Plasma 9.0 MG/DL 8.4 - 10.2 [facility] Bilirubin.total [Mass/volume] in Serum or Plasma 1.2 MG/DL 0.2 - 1.3 [facility] Alkaline phosphatase [Enzymatic activity/volume] in Serum or Plasma 91 U/L 38 - 126 [facility] Aspartate aminotransferase [Enzymatic activity/volume] in Serum or Plasma 186 U/L 5 - 40 [facility] Alanine aminotransferase [Enzymatic activity/volume] in Seru m or Plasma 120 U/L 7 - 56 [facility] Anion gap 3 in Serum or Plasma 21.0 mmol/L 8.0 - 16.0 H [facility] AGE 55 yrs [facility] al NON-AA GFR >60 mL/min [facility] ital AFR AMER GFR >60 mL/min [facility] Male GFR In terprentation 20-49 [...] >32 mL/min Normal ID Date Data Source [id number] 12/26/2020 07:58:00 PM EDT [facility] Name Value Range Interpretation Code Description Data Riana rce(s) Supporting Document(s) Magnesium [Mass/volume] in Serum or Plasma 1.5 MG/DL 1.7 - 2.2 L [facility] ID Date Data Source [id number] 12/26/2020 07:58:00 PM EDT [facility] Name Value Range Interpretation Code Description Data Riana rce(s) Supporting Document(s) Lipase [Enzymatic activity/volume] in Serum or Plasma 109 U/L 13 - 60 H [facility] ID Date Data Source [id number] 12/26/2020 07:58:00 PM EDT [facility] Name Value Range Interpretation Code Description Data Riana rce(s) Supporting Document(s) Ethanol [Moles/volume] in Blood 386.0 MG/DL [facility] ALCOHOL % 0.39 % 0.00 - 0.01 [facility] ital *FOR MEDICAL PURPOSES ONLY * ID Date Data Source [id number] 12/26/2020 08:04:00 PM EDT [facility] Name Value Range Interpretation Code Description Data Riana rce(s) Supporting Document(s) Thyrotropin [Units/volume] in Serum or Plasma by Detec tion limit <= 0.05 mIU/L 1.85 uIU/mL 0.47 - 5.01 [facility] ID Date Data Source [id number] 01/04/2020 08:04:00 AM EDT [facility] Name Value Range Interpretation Code Description Data Riana rce(s) Supporting Document(s) Ceruloplasmin [Mass/volume] in Serum or Plasma 22.5 mg/dL 16.0-31.0 [facility] Performed at: RN - [facility] [address] [id number] Back End Developer: Lashell St MD, Phone: [phone] Tissue transglutaminase IgA Ab [Units/volume] in Serum Labor atory test result 0-3 [facility] Negative 0 - 3 Weak Positive 4 - 10 Positive >10 . Tissue Transglutaminase (tTG) has been identified as the endomysial antigen. Studies have demonstr- ated that endomysial IgA antibodies have over 99% specificity for gluten sensitive enteropathy. ID Date Data Source [id number] 01/04/2020 08:04:00 AM EDT [facility] Name Value Range Interpretation Code Description Data Riana rce(s) Supporting Document(s) Thyroxine (T4) free [Mass/volume] in Serum or Plasma 1.13 ng/dL 0.76- 1.46 [facility] Thyrotropin [Units/volume] in Serum or Plasma 1.200 uIU/ML 0.358-3.74 0 [facility] ID Date Data Source [id number] 01/04/2020 08:04:00 AM EDT [facility] Name Value Range Interpretation Code Description Data Riana rce(s) Supporting Document(s) Antinuclear Antibodies Direct Laboratory test result [facility] ID Date Data Source [id number] 01/04/2020 08:04:00 AM EDT [facility] Name Value Range Interpretation Code Description Data Riana rce(s) Supporting Document(s) Hepatitis C virus Ab [Units/volume] in Serum by Immunoassay 0.1 INDEX [facility] Negative Not infected with HCV, unless recent infection is suspected or other evidence exists to indicate HCV infection. ID Date Data Source [id number] 01/04/2020 08:04:00 AM EDT [facility] Name Value Range Interpretation Code Description Data Riana rce(s) Supporting Document(s) Hbvcorediff1 Laboratory test result [facility] Hbvcorediff2 Laboratory test result [facility] ID Date Data Source [id number] 01/04/2020 08:04:00 AM EDT [facility] Name Value Range Interpretation Code Description Data Riana rce(s) Supporting Document(s) Hepatitis B virus surface Ag [Presence] in Serum or Pl asma by Immunoassay Laboratory test result [facility] Hepatitis B virus surface Ab [Presence] in Serum by Im munoassay Laboratory test result [facility] ID Date Data Source [id number] 01/04/2020 08:04:00 AM EDT [facility] Name Value Range Interpretation Code Description Data Riana rce(s) Supporting Document(s) Total Iron Binding Capacity 331 ug/dL 250-450 [facility] Percent Saturation 42.0 % 19.7-50.0 [facility] Iron (Fe) 139 ug/dL 65-175 [facility] ID Date Data Source [id number] 01/04/2020 08:04:00 AM EDT [facility] Name Value Range Interpretation Code Description Data Riana rce(s) Supporting Document(s) Ferritin [Mass/volume] in Serum or Plasma 1358 ng/mL 26-388 [facility] ID Date Data Source [id number] 01/04/2020 08:04:00 AM EDT [facility] ([facility] [...] Little GFR Left</content>
<content>ESRD GFR <15 on COUTURIERE</content>
<content></content> Potassium Serum 3.9 meq/L 3.5-5.1 [facility] Sodium Level 137 meq/L 136-145 [...] [facility] ID Date Data Source [id number] 01/04/2020 08:04:00 AM EDT [facility] ([facility] [...] % 11.5-14.5 [facility] [place] % 10.5 % 0.0-5.0 [facility] ([facility]ayne carter [...] 10 0.0-0.5 [facility] [place] # 0.7 10 0.0-0.8 [facility] Baso # 0.1 10 0.0-0.2 [facility] ID Date Data Source [id number] 01/03/2020 12:00:00 AM EDT [facility] [place] Patient Name: ABDULLAHI NATION[address] Date of : 1965[place] [address] Date of Exam: 01/03/2020#: Fax: [phone] EXAM: [...] unremarkable.IMPRESSION:Fatty infiltration of the liver.Accredited by the [employer] in General Ultrasound.BERKLEY Morris/Paul you for referring ABDULLAHI NATION to our office.Electronically Signed - SHELDON BIRD DO 01/03/20 16:51 Name Value Range Interpretation Code Description Data Riana rce(s) Supporting Document(s) ID Date Data Source [id number] 12/20/2019 08:04:00 AM EDT [facility] Name Value Range Interpretation Code Description Data Riana rce(s) Supporting Document(s) Hemoglobin A1c 5.5 % [facility] <content>REFERENCE RANGES:</content><br/ ><content></content>
<content><=5.6% NORMAL</content>
<content>5.7-6.4% SUGGESTS IMPAIRED GLUCOSE METABOLISM/PREDIABETIC</content>
<content>>= 6.5% ABNORMAL</content>
<content></content> Estimated Average Glucose 111 mg/dL 60-110 [facility] ID Date Data Source [id number] 12/20/2019 08:04:00 AM EDT [facility] ([facility] [...] Little GFR Left</content>
<content>ESRD GFR <15 on COUTURIERE</content>
<content></content> Sodium Level 136 meq/L 136-145 [facility] [...] [facility] Albumin 4.5 GM/DL 3.2-5.2 [facility] Albumin/Globulin Ratio 1.3 [facility] ([facility] [...] 143 mm[Hg] 143 mm[Hg] M [facility] Diastolic blood pressure 77 mm[Hg] 77 mm[Hg] [facility] Body temperature 97.8 [degF] 97.8 [degF] [facility] Respiratory rate 16 /min 16 /min [facility] Body height 64 [in_i] 64 [in_i] [facility] 5'4" Body weight 137.25 [lb_av] 137.25 [lb_av] [facility] [place] body weight 130 [lb_av] 130 [lb_av] [facility] Body mass index (BMI) [Ratio] 23.6 kg/m2 23.6 k g/m2 [facility] Body height 64 [in_i] 64 [in_i] [facility] 5'4" Body weight 140.12 [lb_av] 140.12 [lb_av] [facility] [place] body weight 130 [lb_av] 130 [lb_av] [facility] Body mass index (BMI) [Ratio] 24.0 kg/m2 24.0 k g/m2 [facility] Systolic blood pressure 156 mm[Hg] 156 mm[Hg] M [facility] Body temperature 98.0 [degF] 98.0 [degF] [facility] Respiratory rate 16 /min 16 /min [facility] Diastolic blood pressure 74 mm[Hg] 74 mm[Hg] [facility] Systolic blood pressure 146 mm[Hg] 146 mm[Hg] M [facility] recheck Diastolic blood pressure 76 mm[Hg] 76 mm[Hg] [facility] recheck Heart rate 77 /min 77 /min [facility] Systolic blood pressure 152 [...] [lb_av] [facility] [place] body weight 130 [lb_av] 130 [lb_av] [facility] [...] /min [facility] Oxygen saturation in Arterial blood by Pulse oximetry 97 % 97 % [facility] [place] body weight 130 [lb_av] 130 [lb_av] [facility] [...]
== END 2021-01-21 17:35 | disposition left against medical advice (07) ==
LOC: M ED 14:12
DX: Z53.29 Procedure and treatment not carried out because of patient's decision for other reasons (principal)